=== PATIENT | female | born 1945 | race Caucasian/White ===

== ENCOUNTER 2024-08-16 07:44 | Emergency (ER) | payer MEDICARE, SELFPAY ==
--- OUTSIDE RECORDS SUMMARY | 2024-07-30 13:30 | XMS_ITS | Encounter Summary ---
Author Organization [facility]ly [facility], later [facility] Address [address] [place] [address] Care Team Providers Care Art Gallery Director Name Role Phone Nidia Kim DO Primary Care Provider [phone] Reason for Visit * Reason Comments PT Treatment * Physical Therapy (Routine) - Authorized Specialty Diagnoses / Procedures Referred By Contact Referred To Contact Physical Therapy / Rehabilitation Diagnoses Balance disorder Nidia Kim DO [address] [place] [address] Phone: tel:[phone] fax:[phone] [facility] [address] [place] [address] Phone: tel: fax: Referral ID Status Reason Start Date Expiration Date Visits Requested Visits Authorized [id number] Authorized Evaluation and Treatment 06/09/2024 06/09/2025 20 20 Encounter Details Date Type Department Care Team (Late st Contact Info) Description 07/30/2024 11:30 AM MDT Treatment [facility] [address] [place] [address] Gale Gar, PT Gait disturbance (Primary Dx); Bilateral leg weakness; Decreased activity tolerance; Bilateral hip pain; Balance disorder Social History Tobacco Use Types Packs/Day Years Used Date Smoking Tobacco: Former Cigarettes 2 20 0 02/24/1965 - 02/24/1985 Smokeless Tobacco: Never Alcohol Use Standard Drinks/Week Comments Yes 2 (1 standard drink = 0.6 oz pur e alcohol) 1 monthly AUDIT-C Answer Date Recorded Q1: How often do you have a drink containing alc ohol? Monthly or less 05/16/2020 Q2: How many drinks containi ng alcohol do you have on a typical day when you are drinking? 1 or 2 05/16/2020 Q3: How often do you have si x or more drinks on one occasion? Never 05/16/2020 PHQ-2 Answer Date Recorded PHQ-2 Total Score 1 06/23/2024 Comments No Sex and Gender Information Value Date Recorded Sex Assigned at Not on file Legal Sex Female 3:08 PM MDT Gender Identity Not on file Sexual Orientation Not on file documented as of this encounter Progress Notes * Марина Chavezsmith - 07/30/2024 11:30 AM MDT Images from the original note were not included. [facility] [place] [address] Physical Therapy Daily Note Patient Name: Lizy Faith : 1945 Today's Date: 07/30/2024 General PT Treatment Diagnosis: Impaired gait, balance, bilateral hip weakness PT Referral Diagnosis: Balance disorder Visit Number: 7 Certification From:: 06/24/24 Certification To:: 09/22/24 Time Calculation Start Time : 1130 Stop Time : 1212 Time Calculation (min): 42 min Visit Number: 7 Subjective: Denies pain in the hip, says lumbar pain is 1/10. Reports that she has not done very much standing/walking the last couple days due to the rain. Objective: All exercise, kendal and thera dynamic activites were spent 1:1 with PT while providing tactile and verbal cues for correct body positioning and safety. Treatment Interventions Treatment 1: Nu step L3 7' for muscle priming and stamina Treatment 2: Supine bridges with rTB above knees 2x10 Treatment 3: Clamshells with yTB 2x10 each side Treatment 4: Side lying hip circles 3 fwd 3 bcwd x5 each side with PT assist on reps as needed Treatment 5: LTRs 1x10 Treatment 6: STS on low mat with 5# weight 1x10 Treatment 7: Forward mini lunges 1x10 - caused L knee pain Treatment 8: Lateral lunges 1x12 Treatment 9: Toe taps onto 8 step 2x30 Assessment: Assessment Response to Treatment: Luis Armando is showing improvement in her LE strength as seen by her increased tolerance to activity and demonstration of reciprocal stair climbing today with bilateral handrails. However, she still reaches muscle fatigue very quickly and requires extensive breaks in between exercises. Plan: Treatment Plan Frequency and Duration: 2 x week 10 weeks Ongoing Treatment and Rationale: Continue progressing exercises that challenge LE strength, endurance, and TA activation. Continue to work on stairs and encouraging reciprocal stepping with the use of one handrail rather than two. $ Therapeutic Activity: 8 $ Therapeutic Exercise: 34 Марина Rowell, SPT 07/30/2024 Cosigned by Gale Gar, PT at 07/30/2024 4:45 PM MDT documented in this encounter Plan of Treatment Upcoming Encounters Date Type Department Care Team (Late st Contact Info) Description 09/24/2024 12:45 PM MDT Office Visit [place] [facility] [address] [facility] [address] [place] [id number] Jos Gagnon MD [facility] [address] [place], [place] [address] 09/27/2024 2:00 PM MDT Office [facility] [address] [place] [address] Nidia Kim DO [address] [place] [address] 10/12/2024 3:00 PM MDT Office Visit [facility] [place] [address] [place] [address] Rosaline Whalen, OSCAR [address] [facility] [address] [place] [address] 04/08/2025 9:00 AM [facility] Appointment [facility] [address] [place] [address] Rosaline Whalen NP [address] [facility] [address] [place] [address] 04/14/2025 11:00 AM [facility] Office Visit [facility] [place] [address] [facility] [address] [place] [address] Rosaline Whalen NP [address] [facility] [address] [place] [address] 04/13/2026 9:30 AM [facility] Education [facility] [address] [facility] [address] [place] [address] documented as of this encounter Visit Diagnoses Diagnosis Gait disturbance- Primary Abnormality of gait Bilateral leg weakness Muscle weakness (generalized) Decreased activity tolerance Bilateral hip pain Pain in joint, pelvic region and thigh Balance disorder documented in this encounter Care Teams Art Gallery Director Relationship Specialty Start Date End Date Nidia Kim DO [address] [place] [address] PCP - General Sports Medicine 09/21/23 documented as of this encounter
--- OUTSIDE RECORDS SUMMARY | 2024-08-03 13:30 | XMS_ITS | Encounter Summary ---
Author Organization [facility] Address [address] [place] [address] Care Team Providers Care Environmental Planner Name Role Phone Nidia Kim DO Primary Care Provider [phone] Reason for Visit * Physical Therapy (Routine) - Authorized Specialty Diagnoses / Procedures Referred By Contact Referred To Contact Physical Therapy / Rehabilitation Diagnoses Balance disorder Nidia Kim DO [address] [place] [address] Phone: tel:[phone] fax:[phone] [facility] [address] [place] [address] Phone: tel: fax: Referral ID Status Reason Start Date Expiration Date Visits Requested Visits Authorized [id number] Authorized Evaluation and Treatment 06/09/2024 06/09/2025 20 20 Encounter Details Date Type Department Care Team (Late st Contact Info) Description 08/03/2024 11:30 AM MDT Treatment [facility] [address] [place] [address] Gale Gar PT Gait disturbance (Primary Dx); Bilateral leg [...] as of this encounter Progress Notes * Gale Gar, PT - 08/03/2024 11:30 AM MDT PT Daily Note Patient Name: Lizy Faith : 1945 Today's Date: 08/03/2024 Assessment: Assessment Response to Treatment: Luis Armando improved her FGA score and partially met her hip abduction goal, but is still quite weak in her hip muscles and would benefit from continued strengthening and balance training. She will be out of town starting next week, so will place her chart on hold until she returns. Making slow progress. Visit number:8 Goals: PT Short Term Goals PT Short Term Goal 1: STG to be met in 8 visits: Luis Armando will improve her hip abductor strength so she can perform at least 8 reps side lying hip abduction for improved stability when walking (Goal met for improved stability in walking) PT Short Term Goal 2: Luis Armando will improve her balance so she scores at least a 23/30 on the FGA, out of the high risk for falls range for improved safety when walking (Goal met for better balance in walking) PT Short Term Goal 3: Luis Armando will be compliant with a home exercise program to help manage her weakness and imbalance at home PT Short Term Goal 4: Luis Armando will report she is consistently using her stationary bicycle at home to help increase her activity tolerance PT Skilled Nursing Goals PT Skilled Nursing Goal 1: LTG to be met in 10 weeks: Luis Armando will demonstrate improved strength in her hips so that she does not have a Trendelenburg limp when walking PT Skilled Nursing Goal 2: Luis Armando will demonstrate safe independent gait on outdoor surfaces including sidewalks and curbs so she can return to walking in her neighborhood, one of her goals. Plan: Treatment Plan Frequency and Duration: 2 x week 10 weeks Ongoing Treatment and Rationale: Continue progressing exercises that challenge LE strength, endurance, and TA activation. Continue to work on stairs and encouraging reciprocal stepping with the use of one handrail rather than two. $ Therapeutic Activity: 15 $ Therapeutic Exercise: 31 General PT Treatment Diagnosis: Impaired gait, balance, bilateral hip weakness PT Referral Diagnosis: Balance disorder Visit Number: 8 Certification From:: 06/24/24 Certification To:: 09/22/24 Time Calculation Start Time : 1128 Stop Time : 1214 Time Calculation (min): 46 min Subjective: Feeling OK. Has done stretches but has not walked consistently other than shopping. Still having some pain in left shoulder and thoracic area of her back. 0/10 shoulder pain today. Objective: Liyz was reassessed to measure her progress toward her goals. She was instructed in and practicedwith 1:1 verbal and tactile cues for correct technique strengthening exercises specifically designed for her to challenge her neuromuscular system to improve her function in daily activities. We discussed more consistent exercise at home: I suggested she begin using her stationary bicycle 5 minutesevery morning. We also discussed walking in a pool when she is in [place] next week as she will be gone for a month. She verbalized and demonstrated understanding of instruction. Modifications and manual assist were provided as needed during the session. Treatment Interventions Treatment 1: Nu step L3 7' for muscle priming and stamina Treatment 2: To mat for strengthening: side lying hip abuction x 8 each leg. Can only reach partialrange on right Treatment 3: Hook lying bridge with transversus activation x 12 Treatment 4: Hook lying march with transversus activation. Treatment 5: Ther act for reassessment: FGA: , improved from Treatment 6: 5 x sit<>stand: 11.6 seconds Treatment 7: For posutural muscle strengthening Treatment 8: For leg/core strength: side lunges x 8 each side. This elicited knee pain, so stopped at 8 rather than 10 Treatment 9: Standing hip extension and abduction with yellow t-band resistance x 10 each Treatment 10: Standing alternating mini lunges x 10 Treatment 11: Side steps in // bars 2 laps. Treatment 12: Heel raises x 10, followed by standing hamstring curls Treatment 13: Stretched calf muscles on // bars ramp. Treatment 14: To mat: mobilized T10 rib which was tender. She stated that area felt better when walking. Functional Gait Assessment Normal Mild Impairment Moderate Impairment Severe Impairment 1. Gait level surface 5.1 secondsx(3) (2) (1) (0) 2. Change in gait speed x(3) (2) (1) (0) 3. Gait with horizontal head turns (3) x(2) (1) (0) 4. Gait with vertical head turns x(3) (2) (1) (0) 5. Gait and pivot turn x(3) (2) (1) (0) 6. Step over obstacle x(3) (2) (1) (0) 7. Gait with narrow base of support (3) (2) (1) x(0) 8. Gait with eyes closed (3) (2) 10.3 secondsx(1) (0) 9. Ambulating backwards x(3) (2) (1) (0) 10. Steps (3) x(2) (1) (0) Total Score (<22/30 indicates fall risk) Admission Reassesment Discharge documented in this encounter Plan of Treatment Upcoming Encounters Date Type Department Care Team (Late st Contact Info) Description 09/24/2024 12:45 PM MDT Office Visit [place] [facility] [place] [facility] [place] [address] [facility] [address] [place] [address] Jos Gagnon MD [address] [facility] [address] [place], [place] [address] 09/27/2024 2:00 PM MDT Office Visit [facility] [address] [place] [address] Nidia Kim DO [address] [place] [address] 10/12/2024 3:00 PM MDT [facility] [address] [facility] [address] [place] [address] Rosaline Whalen NP [address] [facility] [address] [place] [address] 04/08/2025 9:00 AM [facility] Appointment [facility] [address] [place] [address] Rosaline Whalen NP [address] [facility] [address] [place] [address] 04/14/2025 11:00 AM [facility] Office Visit [facility] [address] [facility] [address] [place] [address] Rosaline Whalen NP [address] [facility] [address] [place] [address] 04/13/2026 9:30 AM [facility] [address] [facility] [address] [place] [address] documented as of this encounter Visit Diagnoses Diagnosis Gait disturbance- Primary Abnormality of gait Bilateral leg weakness Muscle weakness (generalized) Decreased activity tolerance Bilateral hip pain Pain in joint, pelvic region and thigh Balance disorder documented in this encounter Care Teams Environmental Planner Relationship Specialty Start Date End Date Nidia Kim DO [address] [place] [address] PCP - General Sports Medicine 09/21/23 documented as of this encounter
--- OUTSIDE RECORDS SUMMARY | 2024-08-06 13:30 | XMS_ITS | Encounter Summary ---
Author Organization [facility] Address [address] [place] [address] Care Team Providers Care Information Developer Name Role Phone Nidia Kim DO Primary Care Provider [phone] Reason for Visit * Reason Comments PT Treatment * Physical Therapy (Routine) - Authorized Specialty Diagnoses / Procedures Referred By Contact Referred To Contact Physical Therapy / Rehabilitation Diagnoses Balance disorder Nidia Kim DO [address] [place] [address] Phone: tel:[phone] fax:[phone] [facility] [address] [place] [address] Phone: tel: fax: Referral ID Status Reason Start Date Expiration Date Visits Requested Visits Authorized [id number] Authorized Evaluation and Treatment 06/09/2024 06/09/2025 20 20 Encounter Details Date Type Department Care Team (Late st Contact Info) Description 08/06/2024 11:30 AM MDT Treatment [facility] [address] [place] [address] Gale Gar, PT Bilateral leg weakness (Primary Dx); Decreased activity tolerance; Bilateral hip pain; Gait disturbance; Balance disorder Social History Tobacco Use Types [...] encounter Progress Notes * Марина Chavezsmith - 08/06/2024 11:30 AM MDT Images from the original note were not included. [facility] [place] [address] Physical Therapy Daily Note Patient Name: Lizy Faith : 1945 Today's Date: 08/06/2024 General PT Treatment Diagnosis: Impaired gait, balance, bilateral hip weakness PT Referral Diagnosis: Balance disorder Visit Number: 9 Certification From:: 06/24/24 Certification To:: 09/22/24 Time Calculation Start Time : 1130 Stop Time : 1211 Time Calculation (min): 41 min Visit Number: 9 Subjective: Reports that she has felt achy the past few days, and her balance has been a little off but feelinga little better today. She thinks this may be due to starting a new medication. Due to this she hasnot walked much the past couple days. Pain is at a 1/10 today in the low back. Objective: All exercise, kendal and thera dynamic activites were spent 1:1 with PT while providing tactile and verbal cues for correct body positioning and safety. Treatment Interventions Treatment 1: Nu step L3 8' for muscle priming and stamina Treatment 2: Checked BP- 133/57 mmHg Treatment 3: Ther act to review HEP as pt will be going on a trip for 1 month Treatment 4: supine bridges 2x10 Treatment 5: sidelying clamshells with yTB 2x10 Treatment 6: supine marching with TA activation 2x10 Treatment 7: standing hip abduction 2x10 ea Treatment 8: standing hip extension 2x10 ea Treatment 9: Man ther to address hip flexor tightness and pain- STM to psoas with strain counter-strain Treatment 10: Ther ex for LE strengthening- Alternating mini lunges in // bars 2x10 Treatment 11: heel raises 2x10 Treatment 12: STS 2x10 at low mat Assessment: Assessment Response to Treatment: Luis Armando responded well to treatment today and her strength is slowly improving in her LE. Some muscle imbalance was observed as she tends to favor the use of quadriceps over her posterior chain muscles for LE strengthening, especially for sit to stands. She would benefit from continuing to strengthen core and posterior chain. We reviewed with Luis Armando her HEP as she will be going out of town for a month, and emphasized the importance of being consistent in order to maintain strength and balance. Plan: Treatment Plan Frequency and Duration: 2 x week 10 weeks Ongoing Treatment and Rationale: Continue progressing exercises that challenge LE strength, endurance, and TA activation. Continue to work on stairs and encouraging reciprocal stepping with the use of one handrail rather than two. Progress exercises that will challenge her posterior chain. $ Therapeutic Activity: 21 $ Therapeutic Exercise: 12 $ Manual Therapy: 8 Марина Rowell, SPT 08/06/2024 Cosigned by Gale Gar, PT at 08/06/2024 12:43 PM MDT documented in this encounter Plan of Treatment Upcoming Encounters Date Type Department Care Team (Late st Contact Info) Description 09/24/2024 12:45 PM MDT Office Visit [place] [facility] [place] [facility] [place] [address] [facility] [address] [place] [address] Jos Gagnon MD [address] [facility] [address] [place], [place] [address] 09/27/2024 2:00 PM MDT Office Visit [facility] [address] [place] [address] Nidia Kim DO [address] [place] [address] 10/12/2024 3:00 PM MDT Office Visit [facility] [address] [facility] [address] [place] [address] Rosaline Whalen NP [address] [facility] [address] [place] [address] 04/08/2025 9:00 AM [facility] Appointment [facility] [address] [place] [address] Rosaline Whalen NP [address] [facility] [address] [place] [address] 04/14/2025 11:00 AM MST Office Visit [facility] [address] [facility] [address] [place] [address] Rosaline Whalen NP [address] [facility] [address] [place] [address] 04/13/2026 9:30 AM [facility] Education [facility] [address] [facility] [address] [place] [address] documented as of this encounter Visit Diagnoses Diagnosis Bilateral leg weakness- Primary Muscle weakness (generalized) Decreased activity tolerance Bilateral hip pain Pain in joint, pelvic region and thigh Gait disturbance Abnormality of gait Balance disorder documented in this encounter Care Teams Information Developer Relationship Specialty Start Date End Date Nidia Kim DO [address] [place] [address] PCP - General Sports Medicine 09/21/23 documented as of this encounter
--- OUTSIDE RECORDS SUMMARY | 2024-08-16 07:54 | XMS_ITS | Continuity of Care Document ---
Author Organization [facility]. If a dditional information is needed, contact Health Information Management at [phone] Address [address] [place] [address] Phone Care Team Providers Care Quenching Car Operator Name Role Phone Unavailable Unavailable Unavailable Unavailable Unavailable Unavailable Unavailable Unavailable Unavailable Unavailable Unavailable Unavailable Unavailable Unavailable Unavailable Problems Hyperparathyroidism Comments:Hyperparathyroidism Impairment of balance Comments:Balance disorder History of malignant neoplas m of kidney Comments:H/O renal cell canc er Obesity Comments:Obesity without ser ious comorbidity, unspecified classification, unspecified obesity type Gastroesophageal reflux dise ase with apnea Comments:Gastro-esophageal r eflux disease without esophagitis Osteoporosis Comments:Osteoporosis, unspe cified osteoporosis type, unspecified pathological fracture presence Chronic kidney disease stage 4 Comments:Chronic kidney dise ase, stage IV (severe) Apnea Comments:Apnea, not elsewher e classified Medications Lisinopril 20 MG Oral Tablet ;20 MG Orally Once a day, 1 tablet Quantity:30 Kianinejad Maryem Comments:20 MG Orally Once a day, 1 tablet Estradiol 0.5 MG Oral Tablet ;0.5 MG Orally , 1 tablet Quantity:24 Kianinejad Maryem Comments:0.5 MG Orally , 1 tablet Meloxicam;15 MG Orally Once a day, 1 tablet Quantity:30 Kianinejad Maryem Comments:15 MG Orally Once a day, 1 tablet MedroxyPROGESTERone Acetate; 2.5 MG Orally Once a day, 2 tablets with food Quantity:10 Kianinejad Maryem Comments:2.5 MG Orally Once a day, 2 tablets with food Vitamin D3 Complete;- Orally , as directed Opal [place] Comments:- Orally , as directed Fish Oil [place]-3;1000 MG Ora lly Once a day, 1 capsule Quantity:30 Kianinejad Maryem Comments:1000 MG Orally Once a day, 1 capsule Omeprazole;40 MG Orally Once a day, 1 capsule Quantity:30 Opal [place] Comments:40 MG Orally Once a day, 1 capsule Tylenol Arthritis Pain;1300 Orally PRN, Opal Moore Comments:1300 Orally PRN, Encounters pre-admission 26-Jun-2018 12:30 Norma Estrada MD (Attending) [facility]
[2024-08-16 07:55] VITALS: BP 136/64; PULSE 67; TEMP 36.5; O2SAT 96; BMI 39.9
--- OUTSIDE RECORDS SUMMARY | 2024-08-16 07:55 | XMS_ITS | Data Portability ---
Author Organization [place] [facility] Address [address] [place] [address] Care Team Providers Care Creative/Art Director Name Role Phone DOUGIE FRIAS Primary Care Provider Assessment Encounter Date Assessment Date Assessment LastModified by Organization Details LastModified Time 02/22/2020 02/22/2020 Overview/History : 74-year-old female new to [facility] with history of renal cell carcinoma status post nephrectomy presents with 2 day history of dysuria and increased urinary frequency. No flank pain, no nausea vomiting or fever. Exam: Acute distress, no abdominal tenderness, no CVA tenderness. DDx considered, but not limited to: Pyelonephritis, nephrolithiasis, urosepsis, vaginal irritation Work up/Results: Urinalysis demonstrated positive blood leucocyte esterase and nitrites there is also positive protein. Urine culture will be sent. Patient had recent blood chemistry with a GFR reported of 26. Plan/Discussion: Signs stable, afebrile, no acute distress. History exam and urine dipstick findings most suggestive of acute uncomplicated urinary tract infection. Will treat empirically with cephalexin as ordered. Will renally dose 4 GFR from 15-30 at 500 mg every 12 hours for 5 days. Home care instructions were given. Emergency room and return precautions were discussed. Follow up with primary care. In order to obtain further information and compare any laboratory results/values, I have accessed patient records on the [employer]. This information was pertinent in my medical decision making today. Not available 02/22/2020 22:06:03 Plan of Treatment Reminders Order Date Submit Date Provider Last Modified By Organization Details Last Modified Time Details Appointments None recorded. Lab culture, urine 2019 020 ARBEN [facility], [address], [address], [place], [address], 1 12:47:05 urinalysis , dipstick 2019 [facility], [address], [place], [address], 0 21:39:27 Referral None recorded. Procedures None recorded. Surgeries None recorded. Imaging None recorded. Medication Orders cephalexin 250 mg capsule 2019 Not available 0 22:07:13 cephalexin 500 mg capsule 2019 [id number], [address], [place], [place], [id number], 0 21:45:55 Patient TargetsNo targets recorded. Patient Instructions Encounter Date Encounter Id Patient Instructions Last Modified By Organization Details Last Modified Time 02/22/2020 [id number] Urinary Tract Infection (UTI) in Women: Care Instructions Not available 02/22/2020 21:39:28 Urinary Tract Infection in Women: Care Instructions Your Care Instructions A urinary tract infection, or UTI, is a general term for an infection anywhere between the kidneys and the urethra (where urine comes out). Most UTIs are bladder infections. They often cause pain or burning when you urinate. UTIs are caused by bacteria and can be cured with antibiotics. Be sure to complete your treatment so that the infection goes away. Follow-up care is a min part of your treatment and safety. Be sure to make and go to all appointments, and call your doctor if you are having problems. It's also a good idea to know your test results and keep a list of the medicines you take. How can you care for yourself at home? Take your antibiotics as directed. Do not stop taking them just because you feel better. You need to take the full course of antibiotics. Drink extra water and other fluids for the next day or two. This may help wash out the bacteria that are causing the infection. (If you have kidney, heart, or liver disease and have to limit fluids, talk with your doctor before you increase your fluid intake.) Avoid drinks that are carbonated or have caffeine. They can irritate the bladder. Urinate often. Try to empty your bladder each time. To relieve pain, take a hot bath or lay a heating pad set on low over your lower belly or genital area. Never go to sleep with a heating pad in place. To prevent UTIs Drink plenty of water each day. This helps you urinate often, which clears bacteria from your system. (If you have kidney, heart, or liver disease and have to limit fluids, talk with your doctor before you increase your fluid intake.) Urinate when you need to. Urinate right after you have sex. Change sanitary pads often. Avoid douches, bubble baths, feminine hygiene sprays, and other feminine hygiene products that have deodorants. After going to the bathroom, wipe from front to back. When should you call for help? Call your doctor now or seek immediate medical care if: Symptoms such as fever, chills, nausea, or vomiting get worse or appear for the first time. You have new pain in your back just below your rib cage. This is called flank pain. There is new blood or pus in your urine. You have any problems with your antibiotic medicine. Watch closely for changes in your health, and be sure to contact your doctor if: You are not getting better after taking an antibiotic for 2 days. Your symptoms go away but then come back. Care instructions adapted under license by [facility]. This care instruction is for use with your licensed healthcare professional. If you have questions about a medical condition or this instruction, always ask your healthcare professional. [employer] disclaims any warranty or liability for your use of this information. Not available 02/22/2020 21:37:54 Reason for Referral None Reported. Results Created Date Observation Date Name Description Value Unit Range Abnormal Flag Note LastModifiedBy Organization Detail LastModifiedTime 02/22/20 20 02/22/2020 urina lysis , dipst ick Appearance cloudy Not Available [facility] [address], [place], [address], 02/22/2020 21:36:45 02/22/20 20 02/22/2020 urina lysis , dipst ick Color yellow Not Available [facility] [address], [place], [address], 02/22/2020 21:36:45 02/22/20 20 02/22/2020 urina lysis , dipst ick Glucose negati ve Not Available [facility] [address], [place], [address], 02/22/2020 21:36:45 02/22/20 20 02/22/2020 urina lysis , dipst ick Bilirubin negati ve Not Available [facility] [address], [place], [address], 02/22/2020 21:36:45 02/22/20 20 02/22/2020 urina lysis , dipst ick Ketones NEG Not Available [facility] [address], [place], [address], 02/22/2020 21:36:45 02/22/20 20 02/22/2020 urina lysis , dipst ick [place] 1.02 Not Available [facility] [address], [place], [address], 02/22/2020 21:36:45 02/22/20 20 02/22/2020 urina lysis , dipst ick Blood ++ Not Available [facility] [address], [place], [address], 02/22/2020 21:36:45 02/22/20 20 02/22/2020 urina lysis , dipst ick pH 5 Not Available [facility] [address], [place], [address], 02/22/2020 21:36:45 02/22/20 20 02/22/2020 urina lysis , dipst ick Protein positi ve Not Available [facility] [address], [place], [address], 02/22/2020 21:36:45 02/22/20 20 02/22/2020 urina lysis , dipst ick Urobilirubin negati ve Not Available [facility] [address], [place], [address], 02/22/2020 21:36:45 02/22/20 20 02/22/2020 urina lysis , dipst ick Nitrites +++ Not Available [facility] [address], [place], [address], 02/22/2020 21:36:45 02/22/20 20 02/22/2020 urina lysis , dipst ick Leukocytes +++ Not Available [facility] [address], [place], [address], 02/22/2020 21:36:45 02/22/20 20 02/26/2020 cultu re, urine urine culture, routine Final report abnormal Not Available [facility] ([facility]) [address], [place], [address], 02/26/2020 18:07:01 02/22/20 20 02/26/2020 cultu re, urine result 1 Escher ichia coli abnormal Great er than 100,0 00 colon y formi ng units per mL Cefaz pritesh <=4 ug/mL Cefaz pritesh with an OMAYRA <=16 predi cts susce ptibi lity to the oral agent s cefac mirza, cefdi jonny, cefpo doxim e, cefpr ozil, cefur oxime , cepha lexin , and lorac arbef when used for thera py of uncom plica russel urina ry tract infec tions due to E. coli, Klebs iella pneum oniae , and Prote us mirab ilis. Not Available [facility] ([facility]) [address], [place], [address], 02/26/2020 18:07:01 02/22/20 20 02/26/2020 cultu re, urine antimicrobia l susceptibili ty Commen t S = Susce ptibl e; I = Inter media te; R = Resis tant P = Posit andi; N = Negat andi MICS are expre ssed in micro grams per mL Antib iotic RSLT# 1 RSLT# 2 RSLT# 3 RSLT# 4 Amoxi cilli n/Cla vulan ic Acid S Ampic illin S Cefep elizabeth S Ceftr iaxon e S Cefur oxime S Cipro floxa anne S Ertap enem S Genta micin S Imipe nem S Levof loxac in S Merop enem S Nitro furan toin S Piper acill in/Ta zobac randhawa S Tetra cycli ne R Tobra mycin S Trime thopr im/Trammell lfa S Not Available [facility] ([facility]) [address], [place], [address], 02/26/2020 18:07:01 Result Notes None recorded. Medical Equipment None Reported. Allergies Allergen ID Allergen Name Allergen Category Reaction Reaction Severity Criticality Documentation Date Start Date Code Code System Note Provider Name and Address Organization Details Recorded Time [id number] acetamino phen / oxycodone medicatio n Not available Not available Not available 02/22/2020 26773 3 RxNorm INDIRA GLEZ, RETIREMENT ASSISTANT [address] [place], [address], [place] [facility] 0 21:25:53 Medications Name Sig Start Date Stop Date Status Note LastModified by Organization Details LastModified Time mm low dose aspirin TAKE 1 TABLET BY MOUTH ONCE DAILY 02/21 completed Not Available Not Available Not Available atorvastati n 10 mg tablet TAKE 1 TABLET BY MOUTH ONCE DAILY active Not Available Not Available No t Available cephalexin 250 mg capsule take 2 capsules by mouth now- administe red at 744pm 2019 active Not Available Not Available Not Avai lable lisinopril 20 mg tablet TAKE 1 TABLET BY MOUTH ONCE DAILY active Not Available Not Available No t Available peg-electro lyte solution 420 gram oral solution START AT 10AM ON THE DAY PRIOR TO SURGERY OR PROCEDURE . DRINK 8 OZ. EVERY 10 MINS UNTIL GONE 02/21 completed Not Available Not Available Not Available tramadol 50 mg tablet TAKE 1 TABLET BY MOUTH EVERY 6 HOURS NEEDED FOR MODERATE PAIN active Not Available Not Available No t Available cephalexin 500 mg capsule TAKE 1 CAPSULE BY MOUTH EVERY 12 HOURS FOR 5 DAYS active Not Available Not Available No t Available mirtazapine 30 mg tablet TAKE 1 TABLET BY MOUTH NIGHTLY 02/21 completed Not Available Not Available Not Available methylpredn isolone 4 mg tablets in a dose pack TAKE BY MOUTH DIRECTED ON INSIDE OF PACKAGE 02/21 completed Not Available Not Available Not Available neomycin 500 mg tablet TAKE 2 TABLETS BY MOUTH AT 1PM 2PM AND 8PM THE DAY PRIOR TO SURGERY. 02/21 completed Not Available Not Available Not Available vitamin B complex active Not Available Not Available Not Available Vitamin D active Not Available Not Sindhu ilable Not Available Eliquis 2.5 mg tablet TAKE 1 TABLET BY MOUTH TWICE DAILY active Not Available Not Available No t Available Vitals Date Recorded Heart rate Respiratory rate Oxygen saturation Oxygen saturation in Arterial blood by Pulse oximetry Body temperature Systolic blood pressure Diastolic blood pressure Provider Name and Address Organization Details Last Updated DateTime 0 85 /min 12 /min 96 % 96 % 98 [degF] 146 mm[Hg] 80 mm[Hg] Not Available [facility] 0 21:31:51 Social History Question Answer Notes LastModified by Organizat ion Details LastModified Time Tobacco Smoking Status Former Smoker INDIRA GLEZ, RETIREMENT ASSISTANT [address] [place], [address], [place] [facility] 02/22/2020 21:27:58 Within The Past 12 Months, Has It Happened That The Food You Bought Just Didn't Last And You Didn't Have Money To Get More. No Information not available 02/22/2020 Within The Past 12 Months, Have You Worried That Your Food Would Run Out Before You Got Money To Buy More. No Information not available 02/22/2020 Fall Risk: Do You Feel Unsteady When Standing Or Walking? Yes Information not available 02/22/2020 Sex: Unknown Functional Status None recorded. Mental Status None recorded. Family History Relationship Description Onset Age of this Age Resolved Age Notes LastModified by Organization Details LastModified Time Father Malignant neoplastic disease Not available 2019 21:27:44 Mother Coronary arterioscler osis Not available 2019 21:27:52 Medical History Condition Response Coronary Artery Disease N COPD N Depression N Cancer N Stroke Y High Cholesterol Y Kidney Disease N Diabetes N Asthma N Pulmonary Embolism N Hypertension Y Gynecological HistoryNo gynecological history recorded. Obstetrics History GPAL:G 0 P 0 0 0 0 Past Encounters Encounter ID Performer Location Encounter Start Date Encounter Closed Date Diagnosis/Indication Diagnosis SNOMED-CT Code Diagnosis ICD10 Code Diagnosis Note [id number] INDIRA GLEZ NP [facility] [address] [place] [address] 02/22/2020 21:18:35 02/22/2020 22:20:19 Urinary tract infectious disease 87842417 N39.0 GFR 26 Acute urin yuliet tract infection 939421829 N39.0 Health Concerns Section Related Observation LastModified by Organization Detai ls LastModified Time None Recorded Concern Status LastModified by Organization Details LastModified Time None Recorded Advance Directives Directive None Recorded Payers Insurance Date Sequence Insurance Name Policy Number Policy Renteria Covered Member ID Renteria Member ID Guarantor Name 02/22/2020 1 *SELF PAY* Lizy Faith [id number] Lizy Faith 02/22/2020 1 [facility] (MEDICARE REPLACEMENT/A DVANTAGE - HMO) [id number] Lizy Faith [id number] Lizy Faith Notes Date Note Type Note Provider Name and Address Organization Details Recorded Time 02/22/2020 text/html 74 yo F- new to - with hx renal cancer (s/p nephrectomy), CKD, recent bowel perforation requiring colostomy and takedown- presents with 2 day hx of dysuria and increased frequency- urine is cloudy- No flank pain.. no N/V or abdominal pain.. no fever (notes 99 temp). INDIRA GLEZ NP [address] [place], [address], [place] [facility] 02/22/2020 22:06:17 OBGyn Episode No OBEpisode recorded.
--- OUTSIDE RECORDS SUMMARY | 2024-08-16 07:55 | XMS_ITS | Encounter Summary ---
Author Organization [facility] Address [address] [place] [address] Care Team Providers Care Supervisor Central Supply Name Role Phone Nidia Kim DO Primary Care Provider [phone] Reason for Referral * Echocardiogram (Routine) - Closed Specialty Diagnoses / Procedures Referred By Contac t Referred To Contact Cardiology Diagnoses Cerebellar infarction (CMS/HCC) Homonymous bilateral field defects in visual field, right Disorder of kidney and ureter Procedures Echocardiogram 2D Complete Zo Godoy MD [address] [place] [address] Phone: tel: fax: [facility] [address] [place] [address] Phone: tel: Referral ID Status Reason Start Date Expiration Date Visits Re quested Visits Authorized [id number] Closed 03/15/2020 03/15/2021 1 1 [facility] Encounter Details Date Type Department Care Team (Latest Contact Info) Description 03/15/2020 Transcribe Orders [facility] [address] [place] [address] Zo Godoy MD [address] [place] [address] Cerebellar infarction (CMS/HCC) (Primary Dx); Homonymous bilateral field defects in visual field, right; Disorder of kidney and ureter Social History Tobacco Use Types Packs/Day Years Used Date Smoking Tobacco: Former Cigarettes 2 20 0 02/24/1965 - 1985 Smokeless Tobacco: Never Alcohol Use Standard Drinks/Week Comments Yes 2 (1 standard drink = 0.6 oz pur e alcohol) 2 per month AUDIT-C Answer Date Recorded Frequency of Alcohol Consumption Monthly or less 01/22/2018 Average Number of Drinks 1 or 2 018 Frequency of Binge Drinking Never 12/26 PHQ-2 Answer Date Recorded PHQ-2 Total Score 0 12/17/2019 Comments No Sex and Gender Information Value Date Recorded Sex Assigned at Not on file Legal Sex Female 3:08 PM MDT Gender Identity Not on file Sexual Orientation Not on file COVID-19 Exposure Response Date Recorded In the last month, have you been in contact with someone who was confirmed or suspected to have Coronavirus / COVID-19? No / Unsure 02/29/2020 10:00 AM MST documented as of this encounter Plan of Treatment Upcoming Encounters Date Type Department Care Team (Late st Contact Info) Description 09/24/2024 12:45 PM MDT Office Visit [facility] [address] [facility] [address] [place] [phone] Jos Gagnon MD [address] [place] [address] [address] [place], [place] [address] 09/27/2024 2:00 PM MDT Office Visit [facility] Primary Care [facility] [address] [place] [address] Nidia Kim DO [address] [place] [address] 10/12/2024 3:00 PM MDT Office Visit [facility] [address] [place] [address] Koby Rosaline Ivania, [employer] [address] [place] [address] 04/08/2025 9:00 AM [facility] Appointment [facility] [address] [place] [address] KobyJesseah Ivania, OSCAR [address] [place] [address] 04/14/2025 11:00 AM [facility] Office Visit [facility] [address] [place] [address] KobyJesse mukherjeeah Ivania, OSCAR [address] [place] [address] 04/13/2026 9:30 AM [facility] [address] [place] [address] documented as of this encounter Results * ECHO 2D COMPLETE WO CONTRAST W DOPPLER & OR COLOR (04/10/2020 3:14 PM [facility]) EF 52.97 % CPACS Anatomical Region Laterality Modality N/A Echocardiography 04/10/2020 3:48 PM [facility] Impressions 04/10/2020 3:48 PM [facility] Spectral Doppler and Color Flow Velocity Mapping were used to interrogate the valves and cardiac structures. Normal left and right ventricular systolic function, LV ejection fraction 55-60 %. No evidence of pericardial effusion. Mild aortic insufficiency, no stenosis. No other significant valvular abnormalities. Unable to estimate RVSP due to incomplete TR jet. Normal CVP. Narrative 04/10/2020 3:48 PM [facility] Transthoracic Echocardiography Report (TTE) Demographics Patient Name TERESA RENEE Gender Female BOAZ [place] ID [id number] Room Number Visit Number [id number] Date of Study 04/10/2020 Local MRN Referring Judy Gonzalessey Physician Ordering Provider Jayne Pathak Number Annmarie Date of 1945 Drug Abuse Social Worker Linda Aviles RDCS Age 75 year(s) Interpreting Alyssa Curran Physician Procedure Type of Study TTE procedure:Spectral Doppler Complete, Color Flow Velocity Mapping, Echo TTE Complete. Procedure Date Date: 04/10/2020 Start: 02:48 PM Study Location: Outpatient Technical Quality: Adequate visualization Indications:Stroke. Patient Status: Outpatient Height: 63 inches Weight: 205 pounds BSA: 1.95 m^2 BMI: 36.31 kg/m^2 BP: 145/81 mmHg Conclusions Summary Spectral Doppler and Color Flow Velocity Mapping were used to interrogate the valves and cardiac structures. Normal left and right ventricular systolic function, LV ejection fraction 55-60 %. No evidence of pericardial effusion. Mild aortic insufficiency, no stenosis. No other significant valvular abnormalities. Unable to estimate RVSP due to incomplete TR jet. Normal CVP. Signature Structures Left Atrium Findings Normal left atrial size. Color Doppler Findings: Interatrial septum appears intact by color flow doppler. LA Dimension: 4.7 cm LA Area: 21.2 cm^2 LA/Aorta: 1.38 LA Volume/Index: 61.4 ml /31ml/m^2 Left Ventricle Findings Normal left ventricular size. Normal left ventricular wall thickness. Normal left ventricular systolic function with ejection fraction estimated to be 55-60%. No regional wall motion abnormalities. Impaired LV relaxation consistent with grade 1 diastolic dysfunction. Diastolic Dimension: 4.2 cm Systolic Dimension: 2.5 cm Septum Diastolic: 0.8 cm PW Diastolic: 0.8 cm Area Systolic: 20.3 cm^2 Area Diastolic: 31.9 cm^2 FS: 40.5 % LV EDV/LV EDV Index: 99.3 ml/51 LV ESV/LV ESV Index: 46.7 ml/24 ml/m^2 ml/m^2 EF Calculated: 53% LV Length: 8.39 cm LVOT Diameter: 2.1 cm Right Atrium Findings The right atrium is normal in size. Right Ventricle Findings Normal right ventricular size and systolic function. TAPSE measures 1.9 cm, consistent with normal right ventricular systolic function. Miscellaneous Miscellaneous Findings Normal aortic root size. Normal ascending aorta size. Normal IVC with >50% respiratory collapse. Aorta Aortic Root: 3.4 cm Ascending Aorta: 3.6 cm LVOT Diameter: 2.1 cm Shunts Qs:89.36 Pericardium Findings No evidence of pericardial effusion. Pleura Findings No evidence of pleural effusion. Valves Mitral Valve Findings Mitral annulus calcification. Mitral annulus calcification, with extension of calcification onto the posterior mitral valve leaflet. Color and Spectral Doppler Findings: No mitral stenosis. Trace mitral insufficiency. Peak E-Wave: 44.1 cm/s Peak A-Wave: 106 cm/s P1/2t: 53 msec E/A Ratio: 0.42 Peak Gradient: 0.78 mmHg Area (PHT): 4.15 cm^2 Deceleration Time: 180 msec Tissue Doppler E' Septal Velocity: 4.03 cm/s E/E' Septal: 10.93792 E' Lateral Velocity: 5.87 cm/s E/E' Lateral: 7.452129 LVOT Peak Velocity: 143 cm/s Mean Velocity: 91.2 cm/s Peak Gradient: 8 mmHg Mean Gradient: 4 mmHg LVOT Diameter: 2.1 cm LVOT VTI: 25.8 cm Aortic Valve Findings Normal aortic valve structure and function. Aortic valve is trileaflet. Color and Spectral Doppler Findings: Mild aortic insufficiency, no stenosis. Peak Velocity: 169 cm/s Mean Velocity: 95.9 cm/s Peak Gradient: 11.42 mmHg Mean Gradient: 5 mmHg Area (continuity): 2.88 cm^2 AV VTI: 31 cm DI: 0.83 AVAI VTI: 1.48 cm^2/m^2 Tricuspid Valve Findings Normal tricuspid valve structure and function. Unable to estimate RVSP due to incomplete TR jet. Color and spectral Doppler Findings: Trace tricuspid regurgitation. No tricuspid stenosis. Pulmonic Valve Findings Grossly normal pulmonic valve structure and function. Color and spectral Doppler Findings: No pulmonic insufficiency or stenosis. Peak Velocity: 81.2 cm/s Peak Gradient: 2.64 mmHg Acceleration Time: 85 msec Procedure Note Magdy Shah MD - 04/10/2020 Transthoracic Echocardiography Report (TTE) Demographics Patient Name TERESA RENEE Gender Female BOAZ [place] ID [id number] Room Number Visit Number [id number] Date of Study 04/10/2020 Local MRN Referring Juyd Gonzalessey Physician Ordering Provider Jayne Lesliene Number Annmarie Date of 1945 Drug Abuse Social Worker Linda Fonseca Age 75 year(s) Interpreting Alyssa Curran Physician Procedure Type of Study TTE procedure:Spectral Doppler Complete, Color Flow Velocity Mapping,Echo TTE Complete. Procedure Date Date: 04/10/2020 Start: 02:48 PM Study Location: Outpatient Technical Quality: Adequate visualization Indications:Stroke. Patient Status: Outpatient Height: 63 inches Weight: 205 pounds BSA: 1.95 m^2 BMI: 36.31 kg/m^2 BP: 145/81 mmHg Conclusions Summary Spectral Doppler and Color Flow Velocity Mapping were used tointerrogate the valves and cardiac structures. Normal left and right ventricular systolic function, LV ejectionfraction 55-60 %. No evidence of pericardial effusion. Mild aortic insufficiency, no stenosis. No other significant valvular abnormalities. Unable to estimate RVSP due to incomplete TR jet. Normal CVP. Signature Structures Left Atrium Findings Normal left atrial size. Color Doppler Findings: Interatrial septum appears intact by color flow doppler. LA Dimension: 4.7 cm LA Area: 21.2 cm^2 LA/Aorta: 1.38 LA Volume/Index: 61.4 ml /31ml/m^2 Left Ventricle Findings Normal left ventricular size. Normal left ventricular wall thickness. Normal left ventricular systolic function with ejection fraction estimated to be 55-60%. No regional wall motion abnormalities. Impaired LV relaxation consistent with grade 1 diastolic dysfunction. Diastolic Dimension: 4.2 cm Systolic Dimension: 2.5 cm Septum Diastolic: 0.8 cm PW Diastolic: 0.8 cm Area Systolic: 20.3 cm^2 Area Diastolic: 31.9 cm^2 FS: 40.5 % LV EDV/LV EDV Index: 99.3 ml/51 LV ESV/LV ESV Index: 46.7 ml/24 ml/m^2 ml/m^2 EF Calculated: 53% LV Length: 8.39 cm LVOT Diameter: 2.1 cm Right Atrium Findings The right atrium is normal in size. Right Ventricle Findings Normal right ventricular size and systolic function. TAPSE measures 1.9 cm, consistent with normal right ventricularsystolic function. Miscellaneous Miscellaneous Findings Normal aortic root size. Normal ascending aorta size. Normal IVC with >50% respiratory collapse. Aorta Aortic Root: 3.4 cm Ascending Aorta: 3.6 cm LVOT Diameter: 2.1 cm Shunts Qs:89.36 Pericardium Findings No evidence of pericardial effusion. Pleura Findings No evidence of pleural effusion. Valves Mitral Valve Findings Mitral annulus calcification. Mitral annulus calcification, with extension of calcification onto the posterior mitral valve leaflet. Color and Spectral Doppler Findings: No mitral stenosis. Trace mitral insufficiency. Peak E-Wave: 44.1 cm/s Peak A-Wave: 106 cm/s P1/2t: 53 msec E/A Ratio: 0.42 Peak Gradient: 0.78 mmHg Area (PHT): 4.15 cm^2 Deceleration Time: 180 msec Tissue Doppler E' Septal Velocity: 4.03 cm/s E/E' Septal: 10.96554 E' Lateral Velocity: 5.87 cm/s E/E' Lateral: 7.577583 LVOT Peak Velocity: 143 cm/s Mean Velocity: 91.2 cm/s Peak Gradient: 8 mmHg Mean Gradient: 4 mmHg LVOT Diameter: 2.1 cm LVOT VTI: 25.8 cm Aortic Valve Findings Normal aortic valve structure and function. Aortic valve is trileaflet. Color and Spectral Doppler Findings: Mild aortic insufficiency, no stenosis. Peak Velocity: 169 cm/s Mean Velocity: 95.9 cm/s Peak Gradient: 11.42 mmHg Mean Gradient: 5 mmHg Area (continuity): 2.88 cm^2 AV VTI: 31 cm DI: 0.83 AVAI VTI: 1.48 cm^2/m^2 Tricuspid Valve Findings Normal tricuspid valve structure and function. Unable to estimate RVSP due to incomplete TR jet. Color and spectral Doppler Findings: Trace tricuspid regurgitation. No tricuspid stenosis. Pulmonic Valve Findings Grossly normal pulmonic valve structure and function. Color and spectral Doppler Findings: No pulmonic insufficiency or stenosis. Peak Velocity: 81.2 cm/s Peak Gradient: 2.64 mmHg Acceleration Time: 85 msec IMPRESSION: Spectral Doppler and Color Flow Velocity Mapping were used to interrogatethe valves and cardiac structures. Normal left and right ventricular systolic function, LV ejection [id number] %. No evidence of pericardial effusion. Mild aortic insufficiency, no stenosis. No other significant valvular abnormalities. Unable to estimate RVSP due to incomplete TR jet. Normal CVP. Zo Godoy MD CV ECHO ORDERABLES Final Result documented in this encounter Visit Diagnoses Diagnosis Cerebellar infarction (CMS/HCC)- Primary Unspecified cerebral artery occlusion with cerebral infarction Homonymous bilateral field defects in visual field, right Disorder of kidney and ureter Unspecified disorder of kidney and ureter Cerebellar infarction (CMS/HCC) Unspecified cerebral artery occlusion with cerebral infarction Homonymous bilateral field defects in visual field, right Disorder of kidney and ureter Unspecified disorder of kidney and ureter documented in this encounter Care Teams Supervisor Central Supply Relationship Specialty Start Date End Date Nidia Kim DO [address] [place] [phone] PCP - General Sports Medicine 09/21/23 documented as of this encounter
--- OUTSIDE RECORDS SUMMARY | 2024-08-16 07:55 | XMS_ITS | Encounter Summary ---
Author Organization [facility] Address [address] [place] [address] Care Team Providers Care Ornamenter Name Role Phone Nidia Kim DO Primary Care Provider [phone] Reason for Visit * Reason Comments Med Refill Encounter Details Date Type Department Care Team (Late st Contact Info) Description 02/02/2020 Refill 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 No / Unsure 02/03/2020 11:55 AM MST documented as of this encounter Miscellaneous Notes * Telephone Encounter - Rey Torres MA - 02/04/2020 8:44 AM MST Please contact patient for an appointment for medication follow up. This is needed with any changes. Patient also seen in ED yesterday for fall with head laceration. Please schedule as ED follow up/medication review * Telephone Encounter - Joycelyn Pak - 02/03/2020 10:49 AM MST Patient states she stopped taking this medication, but since her blood pressure started to increaseshe started taking the medication again. She says her blood pressure has decreased w/ the medication. Please call pt back. * Telephone Encounter - Nidia Kim DO - 02/03/2020 9:31 AM MST Med discontinued * Telephone Encounter - Rey Torres MA - 02/02/2020 9:43 AM MST Patient had a virtual visit 01/12/2020, HTN and follow up not seen. No future appt. Please advise. documented in this encounter Plan of Treatment Upcoming Encounters Date Type Department Care Team (Late st Contact Info) Description 09/24/2024 12:45 PM MDT Office Visit [place] [facility] [address] [place] [address] Jos Gagnon MD [facility] [address] [place] [address] 09/27/2024 2:00 PM MDT Office Visit [facility] [address] [place] [address] Nidia Kim DO [address] [place] [phone] 10/12/2024 3:00 PM MDT Office Visit [facility] [address] [facility] [address] [place] [address] Rosaline Whalen NP [address] [facility] [address] [place] [address] 04/08/2025 9:00 AM [facility] Appoint[facility] [address] [place], [place] [phone] [facility]aline Whalen [facility] [address] [facility] [address] [place] [address] 04/14/2025 11:00 AM MST Office Visit [facility] [place] [address] [facility] [address] [place] [address] Rosaline Whalen NP [address] [facility] [address] [place] [address] 04/13/2026 9:30 AM [facility] Education [facility] [place] [address] [facility] [address] [place] [address] documented as of this encounter Visit Diagnoses Diagnosis Benign hypertension with CKD (chronic kidney disease) stage III ([facility]/HCC) Benign hypertensive kidney disease with chronic kidney disease stage I through stage IV, or unspecified documented in this encounter Care Teams Ornamenter Relationship Specialty Start Date End Date Nidia Kim DO [address] [place] [address] PCP - General Sports Medicine 09/21/23 documented as of this encounter
--- OUTSIDE RECORDS SUMMARY | 2024-08-16 07:56 | XMS_ITS ---
Author Organization [facility] Care Team Providers Care Fire Investigation Manager Name Role Phone Brigitte Urban Unavailable Unavailable Jocelyn Zimmerman Unavailable Unavailable Tomás Mayberry Unavailable Unavailable MILTON MARR Unavailable Unavailable Tamiko Suh Unavailable Unavailable Alphonso Vega Unavailable Unavailable Dhaabhiwafrandy, [place] Unavailable Unavailable [place], Rosaline Unavailable Unavailable Orellana, Juana Unavailable Unavailable Allergies and adverse reactions Code CodeSystem Substance Reaction Severity StartDate Concern Status PERCOCET Unknown 05/20/2019 active 7804 RXNORM Oxycodone Unknown 05/20/2019 active 3355 RXNORM Diclofenac Unknown 05/20/2019 active Adhesive Tape Unknown 05/20/2019 active Care Team Name Role Address Phone Organization Dates MILTON MARR PCP [address] [place], [address], [place] (Office): [facility] 02/15/2021 - 03/04/2021 Brigitte Urban [address] [place], [address], [place] (Office): [facility] 02/15/2021 - 03/04/2021 [place], [address], [place] (Office): : [facility] 02/15/2021 - 03/04/2021 Tomás Shawanda [place], [place], [address], [facility] (Office): [facility] 02/15/2021 - 03/04/2021 Tamiko Suh [address] [place], [address], [facility] (Office): [facility] 02/15/2021 - 03/04/2021 Alphonso Vega [address] [facility] [address], [facility] (Office): : [facility] 02/15/2021 - 03/04/2021 Sadiq Vizcarra [address] [facility] [address], [facility] (Office): : [facility] 02/15/2021 - 03/04/2021 Rosaline Familia [address] [place], [address], [facility] (Office): : [facility] 02/15/2021 - 03/04/2021 Juana Orellana [facility] (Office): [facility] 02/15/2021 - 03/04/2021 Immunizations Immunization Status Vaccine Details Vaccine Code CodeSystem Date Notes Influenza completed Influenza, split virus, trivalent, injectable, contains preservative 141 CVX created date: 02/15/2021 administer ed date: 11/24/2020 TB 2 Step Mantoux Skin Test completed tuberculin skin test; unspecified formulation lotNumber: [id number] expiry: 06/15/2022 Mfg: Sanofi Pasteur Given 0.1 ml Left Forearm intradermally Step 2 of Multi-step with next step required 98 CVX created date: 02/25/2021 consent date: 02/25/2021 administer ed date: 02/25/2021 TB 2 Step Mantoux Skin Test completed tuberculin skin test; unspecified formulation lotNumber: [id number] expiry: 06/15/2022 Mfg: sanofi pasteur Given 0.1 ml Left Forearm intradermally Step 1 of Multi-step with next step required 98 CVX created date: 02/15/2021 consent date: 02/15/2021 administer ed date: 02/15/2021 Educated by penelope on 02/15/2021 [id number] completed pneumococcal conjugate vaccine, 13 valent 133 CVX created date: 02/15/2021 administer ed date: 11/11/2014 Tdap (Tetnus, Diptheria and Pertussis) completed diphtheria, tetanus toxoids and acellular pertussis vaccine 20 CVX created date: 02/15/2021 administer ed date: 02/03/2020 Shingrix Vaccine completed zoster vaccine, live 121 CVX created date: 02/15/2021 administer ed date: 11/24/2020 SARS-COV-2 (COVID-19) completed SARS-COV-2 (COVID-19) vaccine, mRNA, spike protein, LNP, preservative free, 100 mcg/0.5mL dose or 50 mcg/0.25mL dose Step 2 of Multi-step with next step required 207 CVX created date: 02/15/2021 administer ed date: 04/29/2020 received Pfizer SARS-COV-2 (COVID-19) completed SARS-COV-2 (COVID-19) vaccine, mRNA, spike protein, LNP, preservative free, 100 mcg/0.5mL dose or 50 mcg/0.25mL dose Step 1 of Multi-step with next step required 207 CVX created date: 02/15/2021 administer ed date: 04/06/2020 received Pfizer SARS-COV-2 (COVID-19) Pfizer BOOSTER completed SARS-COV-2 (COVID-19) vaccine, mRNA, spike protein, LNP, preservative free, 30 mcg/0.3mL dose 208 CVX created date: 02/15/2021 administer ed date: 12/11/2020 Mental Status Section Date Assessment Total Score Description 03/04/2021 BIMS 15 cognitively int act CAM 0 No delirium ind icated PHQ-9 01 minimal depress ion 02/19/2021 BIMS 15 cognitively int act CAM 0 No delirium ind icated PHQ-9 01 minimal depress ion Problems Problem # Description Date of onset Resolved Date Code CodeSystem Concern Status 1 AFTERCARE FOLLOWING JOINT REPLACEMENT SURGERY 02/16/20 21 03/04/[address] completed 2 CHRONIC KIDNEY DISEASE, STAGE 4 (SEVERE) 02/16/20 21 03/04/[address] completed 3 DIFFICULTY IN WALKING, NOT ELSEWHERE CLASSIFIED 02/16/20 21 03/04/[address] completed 4 MUSCLE WASTING AND ATROPHY, NOT ELSEWHERE CLASSIFIED, MULTIPLE SITES 02/16/20 21 03/04/[address] completed 5 MUSCLE WEAKNESS (GENERALIZED) 02/16/20 21 03/04/[address] completed 6 NONDISPLACED PILON FRACTURE OF RIGHT TIBIA, SUBSEQUENT ENCOUNTER FOR CLOSED FRACTURE WITH ROUTINE HEALING 02/16/20 21 03/04/[address] completed 7 OTHER INSTABILITY, RIGHT ANKLE 02/16/20 21 03/04/[address] completed 8 OTHER REDUCED MOBILITY 02/16/20 21 03/04/[address] completed 9 PERIPROSTHETIC FRACTURE AROUND INTERNAL PROSTHETIC RIGHT ANKLE JOINT, SUBSEQUENT ENCOUNTER 02/16/20 21 03/04/[address] completed 10 POST-TRAUMATIC OSTEOARTHRITIS, RIGHT ANKLE AND FOOT 02/16/20 21 03/04/[address] completed 11 PRESENCE OF RIGHT ARTIFICIAL ANKLE JOINT 02/16/20 21 03/04/[address] completed 12 BILATERAL PRIMARY OSTEOARTHRITIS OF HIP 05/20/19 20 06/18/[address] completed 13 CHRONIC KIDNEY DISEASE, STAGE 4 (SEVERE) 05/20/19 20 06/18/[address] completed 14 COGNITIVE COMMUNICATION DEFICIT 05/20/19 20 06/18/[address] completed 15 DIFFICULTY IN WALKING, NOT ELSEWHERE CLASSIFIED 05/20/19 20 06/18/[address] completed 16 DYSPHAGIA, OROPHARYNGEAL PHASE 05/20/19 20 06/18/[address] completed 17 ENCOUNTER FOR SURGICAL AFTERCARE FOLLOWING SURGERY ON THE DIGESTIVE SYSTEM 05/20/19 20 06/18/[address] completed 18 GASTRO-ESOPHAGEAL REFLUX DISEASE WITHOUT ESOPHAGITIS 05/20/1906/18/[address] completed 19 GASTROSTOMY STATUS 05/20/19 20 06/18/[address] completed 20 HYPERPARATHYROIDI SM, UNSPECIFIED 05/20/1906/18/[address] completed 21 HYPERTENSIVE CHRONIC KIDNEY DISEASE WITH STAGE 1 THROUGH STAGE 4 CHRONIC KIDNEY DISEASE, OR UNSPECIFIED CHRONIC KIDNEY DISEASE 05/20/1906/18/[id number] completed 22 MIGRAINE, UNSPECIFIED, NOT INTRACTABLE, WITHOUT STATUS MIGRAINOSUS 05/20/1906/18/[address] completed 23 MIXED HYPERLIPIDEMIA 05/20/1906/18/[address] completed 24 MUSCLE WEAKNESS (GENERALIZED) 05/20/1906/18/[address] completed 25 NAUSEA 05/20/1906/18/[address] completed 26 OBESITY, UNSPECIFIED 05/20/1906/18/[address] completed 27 OTHER ACUTE POSTPROCEDURAL PAIN 05/20/1906/18/[address] completed 28 OTHER SPEECH AND LANGUAGE DEFICITS FOLLOWING CEREBRAL INFARCTION 05/20/1906/18/[address] completed 29 PREDIABETES 05/20/1906/18/[address] completed 30 SEPSIS DUE TO ESCHERICHIA COLI [E. COLI] 05/20/1906/18/[address] completed 31 SLEEP APNEA, UNSPECIFIED 05/20/1906/18/[address] completed 32 TRANSIENT CEREBRAL ISCHEMIC ATTACK, UNSPECIFIED 05/20/1906/18/[address] completed 33 UNSPECIFIED ABDOMINAL PAIN 05/20/1906/18/[address] completed 34 UNSPECIFIED ATRIAL FIBRILLATION 05/20/1906/18/[address] completed 35 UNSPECIFIED PROTEIN-CALORIE MALNUTRITION 05/20/19 20 06/18/[address] completed Reason for Referral No Reasons for Referral Entered Social History Social History Observation Description Start Date End Date Code Code System Current Smoking Status Tobacco smoking consumption unknown 849962536 SNOMED CT Sex Assigned At Female 1945 68210-3 [facility] Gender Identity Vital Signs Code Code System Vitals Name Values and Units Timing Information 32592-5 [facility] O2 % BldC Oximetry Value=93.0 Units= % 03/04/2021 9279-1 [facility] Respiratory Rate Value=16.0 Units=/m in 03/04/2021 8462-4 [facility] Blood Pressure-Diastolic Value=73 Un its=mmHg 03/04/2021 8480-6 [facility] Blood Pressure-Systolic Rqevl=366 Un its=mmHg 03/04/2021 8310-5 [facility] Body Temperature Value=97.9 Units= F 03/04/2021 8867-4 [facility] Heart rate Value=66.0 Units=/min 10/2021 23787-7 [facility] Pain Level Value=0.0 03/02/2021 67257-4 [facility] Weight Xvase=230.2 Units=Lbs 06/2021 8302-2 [facility] Height Value=65.0 Units=Inches 02/15/2021
--- OUTSIDE RECORDS SUMMARY | 2024-08-16 07:56 | XMS_ITS | Encounter Summary ---
Author Organization [facility] Address [address] [place] [address] Care Team Providers Care Body Component Engineer Name Role Phone Nidia Kim DO Primary Care Provider [phone] Reason for Visit * Reason Onset Date Comments Care Management 08/11/2024 CPAP Encounter Details Date Type Department Care Team (Late st Contact Info) Description 08/11/2024 Telephone [facility] Care [facility] [address] [place] [address] Nidia Kim DO [address] [place] [address] Care Management (CPAP) Social History Tobacco Use Types Packs/Day Years [...] on file documented as of this encounter Miscellaneous Notes * Telephone Encounter - Alida Mcclain MA - 08/11/2024 12:31 PM MDT I called and spoke with Susie at [facility] and she stated that the patient is actually under service with [facility] and that I would need to call them with this information. I spoke with Lyndsey and advised her that her appointment for in office CPAP re-evaluation is scheduled for 09/27/24. She noted this in their system. Patient notified of above and verbalized understanding and appreciation. * Telephone Encounter - Augustina Ledesma - 08/11/2024 11:37 AM MDT Patient's Name/Caller's Name and relationship to pt: Lizy Faith / constance Briggs Contact Number: [phone] Reason for Call: Patient called to advise she received a call from [facility] a couple days ago saying Maty needs a reevaluation by her doctor that ordered her CPAP so the insurance will cover it. The call came from [facility]; [phone]. The patient does not have any other information. Patient's provider: Dr Kim documented in this encounter Plan of Treatment Upcoming Encounters Date Type Department Care Team (Late st Contact Info) Description 09/24/2024 12:45 PM MDT Office Visit [place] [facility] [place] [facility] [place] [address] [place] [address] Jos Gagnon MD [address] [facility] [address] [place], [place] [address] 09/27/2024 2:00 PM MDT Office Visit [facility] [address] [place] [address] Nidia Kim DO [address] [place] [address] 10/12/2024 3:00 PM MDT Office Visit [facility] [address] [facility] [address] [place] [address] Rosaline Whalen NP [address] [place] [address] 04/08/2025 9:00 AM [facility] [address] [place] [address] Rosaline Whalen NP [address] [facility] [address] [place] [address] 04/14/2025 11:00 AM MST [facility] [place] [address] [facility] [address] [place] [address] Rosaline Whalen NP [address] [facility] [address] [place] [address] 04/13/2026 9:30 AM [facility] Education [facility] [place] [address] [facility] [address] [place] [address] documented as of this encounter Visit Diagnoses Not on filedocumented in this encounter Care Teams Body Component Engineer Relationship Specialty Start Date End Date Nidia Kim DO [address] [place] [address] PCP - General Sports Medicine 7/28/24 documented as of this encounter
--- OUTSIDE RECORDS SUMMARY | 2024-08-16 07:56 | XMS_ITS | Clinical Summary ---
Author Organization [facility] Health Address [address] [facility] [place] [address] Care Team Providers Care Warehouse Guard Name Role Phone Unavailable Primary Care Provider Unavailabl e Allergies Active Allergy Reactions Criticality Noted Date Comments Diclofenac Low 02/08/2019 Other reaction(s): GI Intolerance, Nausea/Vomiting Diarrhea/kidney issues Oxycodone Anxiety Low 07/16/2021 Other reaction(s): Altered Mental Status PT REPORTS HALLUCINATIONS W OXYCODONE Oxycodone-Acetaminophen Low 05/06/2019 Other reaction(s): Altered Mental Status Medications aspirin 81 mg tablet Take 81 mg by mouth in the morning. Active acetaminophen (TYLENOL 8 HOUR) 650 mg 8 hr tablet Take 1 tablet by mouth. Active alpha lipoic acid 600 mg tablet Take 1 tablet by mouth 1 (one) time each day. Active Eliquis 2.5 mg tablet 06/22/2021 Active cholecalciferol , VITAMIN D3, 5,000 Units tablet Take 1 tablet by mouth. Active cyanocobalamin (VITAMIN B-12) 1,000 mcg tablet Take 1 tablet by mouth. Active traMADoL (ULTRAM) 50 mg tablet 06/22/2021 Active senna (SENOKOT) 8.6 mg tablet Take 2 tablets by mouth. Active lisinopriL (PRINIVIL,ZESTR IL) 10 mg tablet 07/08/2021 Active Active Problems No known active problems Social History Tobacco Use Types Packs/Day Years Used Date Smoking Tobacco: Never Assessed Comments Unknown Sex and Gender Information Value Date Recorded Sex Assigned at Not on file Legal Sex Female 11:04 AM PDT Gender Identity Not on file Sexual Orientation Not on file Last Filed Vital Signs Vital Sign Reading Time Taken Comments Blood Pressure 127/66 07/16/2021 10:40 AM MDT Pulse 82 07/16/2021 10:40 AM MDT Temperature - - Respiratory Rate - - Oxygen Saturation - - Inhaled Oxygen Concentration - - Weight - - Height - - Body Mass Index - - Plan of Treatment Health Maintenance Due Date Last Done Comments Dental Oral Exam 01/17/2022 07/16/2021 Dental Prophylaxis 01/17/2022 07/16/2021 Dental X-Ray: Bitewings 01/17/2022 07/16/2021 Dental X-Ray: Panoramic 07/17/2024 07/16/2021 Dental X-Ray: Full Mouth 10/18/2024 10/17/2021, 06/25 Procedures Procedure Name Priority Date/Time Associated Diagnosis Comments PANORAMIC RADIOGRAPHIC IMAGE Routine 07/16/2021 10:30 AM MDT PROPHYLAXIS - ADULT Routine 07/16/2021 1 0:30 AM MDT INTRAORAL - COMPREHENSIVE SERIES OF RADIOGRAPHIC IMAGES Routine 07/16/2021 10:30 AM MDT COMPREHENSIVE ORAL EVALUATION - NEW OR ESTABLISHED PATIENT Routine 07/16/2021 10:30 AM MDT from Last 3 Months or Most Recently Relevant to Health Maintenance [place] [address] [place] [address] PPO [place] [id number]
--- OUTSIDE RECORDS SUMMARY | 2024-08-16 07:56 | XMS_ITS | Encounter Summary ---
Author Organization [employer] [facility] [employer] Address [address] [place] [address] Care Team Providers Care Shipping & Receiving Lead Name Role Phone LorenaNidia alvarado Primary Care Provider [phone] Reason for Visit * Reason Comments Med Refill Encounter Details Date Type Department Care Team (Late st Contact Info) Description 08/03/2023 Refill [facility] [place] [address] [place] [address] Rebekah Abrams, LITHOGRAPHIC STRIPPER [address] [place] [address] Social History Tobacco Use Types Packs/Day Years Used Date Smoking Tobacco: Former Cigarettes 2 20 0 02/24/1965 - 02/24/1985 Smokeless Tobacco: Never Alcohol Use Standard Drinks/Week Comments Yes 0 (1 standard drink = 0.6 oz pur [...] Answer Date Recorded PHQ-2 Total Score 0 06/25/2023 Comments No Sex and Gender Information Value Date Recorded Sex Assigned at Not on file Legal Sex Female 3:08 PM MDT Gender Identity Not on file Sexual Orientation Not on file documented as of this encounter Miscellaneous Notes * Telephone Encounter - Surjit Fernandez MA - 08/04/2023 9:33 AM MDT Our records indicate that this patient is no longer under the care of any of the providers within [facility] [place]. Patient will need to reach out to their new Fuel Efficient Aircraft Designer or Primary Care Provider. Refill not appropriate at this time. documented in this encounter Plan of Treatment Upcoming Encounters Date Type Department Care Team (Late st Contact Info) Description 09/24/2024 12:45 PM MDT Office Visit [facility] [facility] [address] [facility] [address] [place] [address] Jos Gagnon MD [address] [facility] [address] [place] [address] 09/27/2024 2:00 PM MDT Office Visit [facility] Primary Care [facility] [address] [place] [address] Nidia Kim DO [address] [place] [address] 10/12/2024 3:00 PM MDT Office Visit [facility] [place] [address] [facility] [address] [place] [address] Rosaline Whalen NP [address] [facility] [address] [place] [address] 04/08/2025 9:00 AM MST Appointment [facility] [address] [place] [address] Rosaline Whalen NP [address] [place] [address] 04/14/2025 11:00 AM MST Office Visit [facility] [address] [facility] [address] [place] [address] Rosaline Whalen NP [address] [facility] [address] [place] [address] 04/13/2026 9:30 AM MST Education [facility] [address] [facility] [address] [place] [address] documented as of this encounter Visit Diagnoses Not on filedocumented in this encounter Care Teams Shipping & Receiving Lead Relationship Specialty Start Date End Date Nidia Kim DO [address] [place] [address] PCP - General Sports Medicine 09/21/23 documented as of this encounter
--- OUTSIDE RECORDS SUMMARY | 2024-08-16 07:56 | XMS_ITS | Data Portability ---
Author Organization [place] [facility] Address [address] [place] [address] Care Team Providers Care Mechanical Engineering Officer Name Role Phone DOUGIE FRIAS Primary Care Provider Assessment Encounter Date Assessment Date Assessment LastModified by Organization Details LastModified Time 02/22/2020 02/22/2020 Overview/History : 74-year-old female new to [employer] [facility] with history of renal cell carcinoma status [...] I have accessed patient records on the [employer]. This information was pertinent in my medical decision making today. Not available 02/22/2020 22:06:03 Plan of Treatment Reminders Order Date Submit Date Provider Last Modified By Organization Details Last Modified Time Details Appointments None recorded. Lab culture, urine 2019 020 ARBEN [facility], [address], [address], [place], [address], 1 12:47:05 urinalysis , dipstick 2019 [facility], [address], [place], [address], 0 21:39:27 Referral None recorded. Procedures None recorded. Surgeries None recorded. Imaging None recorded. Medication Orders cephalexin 250 mg capsule 2019 Not available 0 22:07:13 cephalexin 500 mg capsule 2019 [id number], [address] [facility], [place], [place], [id number], 0 21:45:55 Patient TargetsNo targets recorded. Patient Instructions Encounter Date Encounter Id Patient Instructions Last Modified By Organization Details Last Modified Time 02/22/2020 [id number] Urinary Tract Infection (UTI) in Women: Care [...] back. Care instructions adapted under license by [facility]. This care instruction is for use with your licensed healthcare professional. If you have questions about a medical condition or this instruction, always ask your healthcare professional. [employer] disclaims any warranty or liability for your use of this information. Not available 02/22/2020 21:37:54 Reason for Referral None Reported. Results Created Date Observation Date Name Description Value Unit Range Abnormal Flag Note LastModifiedBy Organization Detail LastModifiedTime 02/22/20 20 02/22/2020 urina lysis , dipst ick Appearance cloudy Not Available [facility] [address], [place], [address], 02/22/2020 21:36:45 02/22/20 20 02/22/2020 urina lysis , dipst ick Color yellow Not Available [facility] [address], [place], [address], 02/22/2020 21:36:45 02/22/20 20 02/22/2020 urina lysis , dipst ick Glucose negati ve Not Available [facility] [address], [place], [address], 02/22/2020 21:36:45 02/22/20 20 02/22/2020 urina lysis , dipst ick Bilirubin negati ve Not Available [facility] [address], [place], [address], 02/22/2020 21:36:45 02/22/20 20 02/22/2020 urina lysis , dipst ick Ketones NEG Not Available [facility] [address], [place], [address], 02/22/2020 21:36:45 02/22/20 20 02/22/2020 urina lysis , dipst ick Sp. [place] 1.02 Not Available [facility] [address], [place], [address], 02/22/2020 21:36:45 02/22/20 20 02/22/2020 urina lysis , dipst ick Blood ++ Not Available [facility] [address], [place], [address], 02/22/2020 21:36:45 02/22/20 20 02/22/2020 urina lysis , dipst ick pH 5 Not Available [facility] [address], [place], [address], 02/22/2020 21:36:45 02/22/20 20 02/22/2020 urina lysis , dipst ick Protein positi ve Not Available [facility] [address], [place], [address], 02/22/2020 21:36:45 02/22/20 20 02/22/2020 urina lysis , dipst ick Urobilirubin negati ve Not Available [facility] [address], [place], [address], 02/22/2020 21:36:45 02/22/20 20 02/22/2020 urina lysis , dipst ick Nitrites +++ Not Available [facility] [address], [place], [address], 02/22/2020 21:36:45 02/22/20 20 02/22/2020 urina lysis , dipst ick Leukocytes +++ Not Available [facility] [address], [place], [address], 02/22/2020 21:36:45 02/22/20 20 02/26/2020 cultu re, urine urine culture, routine Final report abnormal Not Available [facility] ([facility]) [address] [facility], [place], [address], 02/26/2020 18:07:01 02/22/20 20 02/26/2020 cultu re, [...] Prote us mirab ilis. Not Available [facility] ([facility]) [address] [facility], [place], [address], 02/26/2020 18:07:01 02/22/20 20 02/26/2020 cultu re, [...] thopr im/Trammell lfa S Not Available [facility] ([facility]) [address] [facility], [place], [address], 02/26/2020 18:07:01 Result Notes None recorded. Medical Equipment None Reported. Allergies Allergen ID Allergen Name Allergen Category Reaction Reaction Severity Criticality Documentation Date Start Date Code Code System Note Provider Name and Address Organization Details Recorded Time 901276 acetamino phen / oxycodone medicatio n Not available Not available Not available 02/22/2020 19099 3 RxNorm INDIRA GLEZ, RESIN COATER [address] [place], [address], [place] [facility] 0 21:25:53 [...] [degF] 146 mm[Hg] 80 mm[Hg] Not Available [facility] 0 21:31:51 Social History Question Answer Notes LastModified by Organizat ion Details LastModified Time Tobacco Smoking Status Former Smoker INDIRA GLEZ, RESIN COATER [address] [place], [address], [place] [facility] 02/22/2020 21:27:58 Within The [...] SNOMED-CT Code Diagnosis ICD10 Code Diagnosis Note [id number] INDIRA GLEZ NP [facility] [address] [place] [address] 02/22/2020 21:18:35 02/22/2020 22:20:19 Urinary tract infectious disease 52481899 N39.0 GFR 26 Acute urin yuliet tract infection 056608921 N39.0 Health Concerns Section Related Observation LastModified by Organization Detai ls LastModified Time None Recorded Concern Status LastModified by Organization Details LastModified Time None Recorded Advance Directives Directive None Recorded Payers Insurance Date Sequence Insurance Name Policy Number Policy Renteria Covered Member ID Renteria Member ID Guarantor Name 02/22/2020 1 *SELF PAY* Lizy Faith [id number] Lizy Faith 02/22/2020 1 [facility] (MEDICARE REPLACEMENT/A DVANTAGE - HMO) [id number] Lizy Faith [id number] Lizy Faith Notes Date Note Type Note [...] fever (notes 99 temp). INDIRA GLEZ NP [address] [place], [address], [place] [facility] 02/22/2020 22:06:17 OBGyn Episode No OBEpisode recorded.
--- OUTSIDE RECORDS SUMMARY | 2024-08-16 07:56 | XMS_ITS | Encounter Summary ---
Author Organization [facility] Health Address [address] [place] [address] Care Team Providers Care Kennel Technician Name Role Phone Unavailable Primary Care Provider Unavailabl e Prior Encounters Date Type Department Care Team Description 07/16/2021 10:30 AM MDT Office Visit [facility] [address] [place] [address] Kenn Mccray III, DDMelyssa Last Filed Vital Signs Vital Sign Reading Time Taken Comments Blood Pressure 127/66 07/16/2021 10:40 AM MDT Pulse 82 07/16/2021 10:40 AM MDT Temperature - - Respiratory Rate - - Oxygen Saturation - - Inhaled Oxygen Concentration - - Weight - - Height - - Body Mass Index - - Plan of Treatment Not on file Procedures Procedure Name Priority Date/Time Associated Diagnosis Comments ORAL HYGIENE INSTRUCTIONS Routine 2021 10:30 AM MDT PROPHYLAXIS - ADULT Routine 07/16/2021 1 0:30 AM MDT INTRAORAL PHOTO Routine 07/16/2021 10:30 AM MDT INTRAORAL PHOTO Routine 07/16/2021 10:30 AM MDT INTRAORAL PHOTO Routine 07/16/2021 10:30 AM MDT INTRAORAL PHOTO Routine 07/16/2021 10:30 AM MDT PANORAMIC RADIOGRAPHIC IMAGE Routine 07/16/2021 10:30 AM MDT INTRAORAL - COMPREHENSIVE SERIES OF RADIOGRAPHIC IMAGES Routine 07/16/2021 10:30 AM MDT COMPREHENSIVE ORAL EVALUATION - NEW OR ESTABLISHED PATIENT Routine 07/16/2021 10:30 AM MDT 2 ROOT CANAL Routine 07/16/2021 12:00 AM MDT 10 ZIRCONIA CROWN Routine 07/16/2021 12: 00 AM MDT 10 DENTAL IMPLANT Routine 07/16/2021 12: 00 AM MDT 20 PFM CROWN Routine 07/16/2021 12:00 AM MDT 15 PFM CROWN Routine 07/16/2021 12:00 AM MDT 14 PFM CROWN Routine 07/16/2021 12:00 AM MDT 12 PFM CROWN Routine 07/16/2021 12:00 AM MDT 11 PFM CROWN Routine 07/16/2021 12:00 AM MDT 5 PFM CROWN Routine 07/16/2021 12:00 AM MDT 3 PFM CROWN Routine 07/16/2021 12:00 AM MDT 15 ROOT CANAL Routine 07/16/2021 12:00 AM MDT 6 ROOT CANAL Routine 07/16/2021 12:00 AM MDT 2 BENSON METAL CROWN Routine 07/16/2021 1 2:00 AM MDT 32 MO COMPOSITE FILLING Routine 07/17/19 12:00 AM MDT 31 O COMPOSITE FILLING Routine 12:00 AM MDT 7 DL COMPOSITE FILLING Routine 12:00 AM MDT 29 DO AMALGAM FILLING Routine 07/16/2021 12:00 AM MDT 17 O AMALGAM FILLING Routine 07/16/2021 12:00 AM MDT 13 DO AMALGAM FILLING Routine 07/16/2021 12:00 AM MDT 4 MOD AMALGAM FILLING Routine 07/16/2021 12:00 AM MDT 1 MO AMALGAM FILLING Routine 07/16/2021 12:00 AM MDT 18 ZIRCONIA CROWN Routine 07/16/2021 12: 00 AM MDT 19 ZIRCONIA CROWN Routine 07/16/2021 12: 00 AM MDT 18 DENTAL IMPLANT Routine 07/16/2021 12: 00 AM MDT 19 DENTAL IMPLANT Routine 07/16/2021 12: 00 AM MDT Visit Diagnoses Not on file Insurance [facility] P[facility] [place] [id number]
--- OUTSIDE RECORDS SUMMARY | 2024-08-16 07:56 | XMS_ITS | Clinical Summary ---
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 Indications: prevention of vitamin D deficiency Active acetaminophen (TYLENOL) 650 MG 8 hr tabletIndicati ons:pain Take 1 tablet by mouth every 8 hours as needed for mild pain Indications: pain. Not to exceed the recommended amount of 3,000 mg of Acetaminophen from all sources in 24 hours. Active senna (SENOKOT) 8.6 mg tabletIndicati ons:constipati on Take 2 tablets by mouth daily Indications: constipation. Active aspirin 81 MG EC tablet Take 81 mg by mouth daily. Active calcitRIOL (ROCALTROL) 0.25 MCG capsule TAKE 1 CAPSULE BY MOUTH DAILY 100 capsule 2 12/18/19 23 Active ergocalciferol (DRISDOL) 1,250 mcg (50,000 unit) capsule TAKE 1 CAPSULE BY MOUTH TWICE A MONTH 03/07/19 24 Active vitamins Y3-W8-F3-B12-p rotease 2.5 mg-2.5 mg- 5 mg-100 mcg tablet Take 1 tablet by mouth daily. Active alpha lipoic acid (LIPOIC ACID MISC) Active vitamin B complex (METANX) capsule Take 1 capsule by mouth daily. Active benzonatate (TESSALON) 100 MG capsule Take 1 capsule (100 mg) by mouth 3 times a day as needed for cough. 30 capsule 03/10/19 25 Active albuterol 90 mcg/actuation inhaler Inhale 2 puffs by mouth every 4 hours as needed for shortness of breath or wheezing. 18 g 3 03/10/19 25 026 Active HYDROcodone-ac etaminophen (NORCO) 5-325 mg per tablet Take 1 tablet by mouth every 6 hours as needed for moderate pain. Max Daily Amount: 4 tablets 12 tablet 03/10/19 25 Active lisinopriL (ZESTRIL, PRINIVIL) 10 MG tablet TAKE 1 TABLET BY MOUTH DAILY 100 tablet 2 05/17/19 25 Active clopidogreL (PLAVIX) 75 mg tablet Take 1 tablet (75 mg) by mouth daily. 90 tablet 1 05/29/19 25 025 Active tirzepatide (weight loss) (ZEPBOUND) 2.5 mg/0.5 mL pen injectorIndica tions:obstruct andi sleep apnea syndrome,weigh t loss management for obese patient (bmi >= 30) Inject 0.5 mL (2.5 mg) under the skin once a week Indications: sleep apnea due to airway obstruction, weight loss management for a person with obesity. 2 mL 2 07/31/19 25 Active tirzepatide (weight loss) (ZEPBOUND) 2.5 mg/0.5 mL pen injectorIndica tions:obstruct andi sleep apnea syndrome,weigh t loss management for obese patient (bmi >= 30) Inject 0.5 mL (2.5 mg) under the skin once a week Indications: sleep apnea due to airway obstruction, weight loss management for a person with obesity. 2 mL 2 06/24/19 25 025 Discontin ued(Reord er) Active Problems Problem Noted Date Diagnosed Date MINNA (obstructive sleep apnea) 06/14/2024 Assessment & Plan (06/23/2024 10:02 AM MDT): Moderate sleep apnea on recent study Will send order to [facility] for CPAP machine with 1lpm oxygen added. Start Tirzepatide weekly for MINNA to aide in weight loss contributing to sleep apnea. Medication side effects discussed. Follow up with me in 3 months Assessment & Plan (06/14/2024 6:10 AM MDT): Sleep poor. Trouble losing weight AM headaches. Needs sleep study Apnea, not elsewhere classified 06/09/2024 Multinodular goiter 06/09/2024 Presence of Watchman left atrial appendage closu re device 04/15/2024 Overview (04/15/2024): Patient referred by Dr Gagnon for LAAO consideration due to desire to stop eliquis for paroxysmal Atrial fibrillation (not previously treated with DCCV and ablation) because of fall risk, increased thromboembolic stroke risk, clinically significant bleeding risk, medication non compliance). [id number] = 7 (HTN, Age x2, Pre-DM, Prior CVA/TIA or Thomboembolism x2, Gender) HASBLED =4 (abnormal renal function, age, previous stroke, medications- anti plt). On 04/13/24 patient underwent LAAO with #[address] Cole. No immediate complications. Assessment & Plan (05/25/2024 9:28 AM MDT): Since last LAAO visit, no rehospitalization, thromboembolic events, bleeding events or any other repeat imaging or labs than listed below. Lab Results Component Value Date CREATININE 2.36 (H) 04/15/2024 Lab Results Component Value Date HGB 11.6 (L) 04/13/2024 No results found. Re-reviewed GONZALO closure procedure in detail. GONZALO closure/device implantation is utilized to decrease risk of CVA due to atrial fibrillation. It appears to be as efficacious as Coumadin for CVA prevention in patients with non-valvular atrial fibrillation. Per the [place] Fx trial patients who undergo Watchman implantation have a 96.2% success rate in ability to discontinue OAC/NOAC at 45 day post implantation. Explained that this procedure does not reduce the incidence of atrial fibrillation. It is solely, in effort to be able to stop OAC/NOAC. Will perform YOLANDA at 45 days as scheduled on 05/28/24. I see no concern for proceeding as planned with this procedure on this date. H/P has been updated as above. Reviewed pre-procedure instructions. Explained that we will contact the patient the day of the YOLANDA or the following business day to explain results and Rx appropriate therapy. As long as there is less than a 5mm leak will then transition to DAPT. Pt will need to stay on DAPT for an additional 4.5 months (total 6 months post implant). If no further issues, will then transition to ASA 81mg lifelong. Assessment & Plan (04/22/2024 2:[address] [facility]): Patient seen today in follow up after her visit las week for multiple complaints of pain and cramping. She was given colchcine but never filled it. Her symptoms self resolved. Lab Results Component Value Date GLUCOSE 91 04/15/2024 CALCIUM 9.3 04/15/2024 NA 143 04/15/2024 K 4.6 04/15/2024 CO2 18 (L) 04/15/2024 CL 110 (H) 04/15/2024 BUN 56 (H) 04/15/2024 CREATININE 2.36 (H) 04/15/2024 Cr was near her baseline at that time. Since that visit, all of her symptoms resolved. Reviewed plan of care. Assessment & Plan (04/15/2024 10:[address] [facility]): Patient seen today urgently for multiple complaints. Since her LAAO she describes pain all over her body that she classifies as cramping or lactic acid type feeling. Her pain is mostly in her chest and worsens when she takes a deep breath. Patient received transition of care phone call on 04/14/24. Discharge summary has been reviewed as well as appropriate other hospital documents. The problem list has been updated. Medications have been reconciled. The plan of care has been adjusted to reflect the recent hospitalization, and the patient's goals of care. The patient's functional status has been reviewed and appropriate supportive services are in place. Appropriate follow-up appointments with consulting providers have been set up. Groin site without complication. EKG completed today without complication. Patient has been educated on when to call our office and when to seek emergent care related to his procedure. Follow-up scheduled with repeat echo and visit with me at 1 month. Concern for pericarditis vs inflammation following anesthesia given her CKD. Will check BMP today. Asked patient to push oral fluids If she has continued chest discomfort I did Rx a week of colchicine. Ventral hernia without obstruction or gangrene 0 06/25/2023 History of left hip replacement 05/31/2022 Assessment & Plan (05/31/2022 12:45 PM MDT): Audible click with walking. Ortho referral sent. 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): Patient is a class III risk, at 6.6% risk of a major cardiac event. EKG is normal, no evidence of ischemia. Patient is able to perform at least 4 METS of activity. No further cardiac work-up indicated. Patient has history of CVA and postop DVT, patient will resume Eliquis post-op. Creatinine elevated at 2.4. Will monitor labs. Labs ordered, pending results at this time. Patient is medically optimized for low risk surgery. Follow-up with PCP as needed. Skin tags, multiple acquired 10/12/2021 Assessment & Plan (10/12/2021 9:39 AM MDT): Multiple benign appearing skin tags. Derm referral placed for general skin exam Tendinopathy of right rotator cuff 09/25/2021 Assessment & Plan (01/22/2022 1:17 PM MST): Chronic right shoulder rotator cuff arthropathy with known complete tear of the rotator cuff. She elected for repeat palpation guided subacromial cortisone injection. She can repeat this injection in 3 to 4 months as warranted. All questions were answered prior to the patient leaving the office. Assessment & Plan (12/11/2021 11:21 AM MDT): Chronic right shoulder rotator cuff arthopathy with full thickness tear of rotator cuff and underlying GH arthritis. Her shoulder is not painful at the current time and she is able to most of her activities of daily living without pain. Discussed prognosis of tore rotator cuff which appears chronic and underlying arthritis. Can do injections for pain relief. Could consider surgical consultation for reverse total shoulder replacement. At the current time she will see how she does over the next several weeks/months. If pain worsens or function decreases she will call for follow up. Assessment & Plan (09/26/2021 8:17 AM MDT): Luis Armando was seen and evaluated today for right shoulder pain that seems consistent with a chronic rotator cuff tearing. Diagnosis and treatment was discussed while she was in the office today. She has severe pain with range of motion and positive impingement signs today. She elected to proceed forward with a palpation guided right shoulder subacromial cortisone injection. I would like her to also start formal physical therapy for strength and range of motion. She will follow-up with me as needed. All questions were answered prior to the patient leaving the office. Periprosthetic fracture arou nd internal prosthetic ankle joint, initial encounter 02/14/2021 Arthritis of right ankle 02/29/2020 Assessment & Plan (01/17/2021 9:[address] [facility]): Total ankle replacement surgery scheduled for Feb 05, [address] Mayito Alanis. Assessment & Plan (08/22/2020 3:31 PM MDT): No longer getting any improvement with intra-articular ankle injections. She has seen Dr. Alanis in the past. Referral placed to his office. Follow-up with me as needed. Assessment & Plan (05/18/2020 8:04 AM MDT): Luis Armando was seen in follow up for right ankle arthritis. She had a successful ultrasound guided right ankle joint injection done today. Ultrasound was used to verify needled placement and avoid neurovascular injury. Aftercare injection instructions were discussed. She will follow up as needed. Assessment & Plan (02/29/2020 1:55 PM MST): She has known right ankle arthritis. She has a general sensation of instability. Currently the pain is not severe enough to consider cortisone injection so she will start a physician directed home exercise program to help with strength and proprioception. If pain worsens I would recommend an ultrasound-guided right ankle joint injection. Arthritis of left knee 02/29/2020 Assessment & Plan (02/29/2020 1:56 PM MST): Known left knee arthritis which was confirmed on x-rays today. She did get improvement from the cortisone injection that was completed in November. It is too early to repeat it currently but overall she does feel like she has continued improvement. She will monitor her symptoms and she is eligible for an injection at the end of February if needed. Spondylosis of lumbar region without myelopathy or radiculopathy 02/29/2020 Assessment & Plan (02/29/2020 1:44 PM MST): Low back pain that seems consistent with a flare of underlying degenerative changes of the lumbar spine. There are no red flags to warrant any urgent advanced imaging. She will work on home stretching activities. I would recommend a [id number] topical Salonpas. She has had stomach upset and sensitivity to even topical Voltaren in the past. Continue to monitor over the next couple weeks. Degenerative arthritis of left knee 12/17/2019 Assessment & Plan (12/17/2019 3:43 PM MDT): Left knee pain that is consistent with underlying osteoarthritis. Diagnosis and treatment was discussed while she was in the office today. Given the limited ability she has for any regular walking activities she elected for a palpation guided cortisone injection of the left knee. Aftercare injection instructions were discussed. If she does not get any significant symptomatic improvement we did discuss the possibility of doing x-rays in the near future. She will follow-up with me at [facility]. Chronic anticoagulation 10/10/2019 Overview (09/24/2023): Patient referred by Dr Gagnon for LAAO consideration due to desire to stop eliquis for paroxysmal Atrial fibrillation (not previously treated with DCCV and ablation) because of fall risk, increased thromboembolic stroke risk, clinically significant bleeding risk, medication non compliance). [id number] = 7 (HTN, Age x2, Pre-DM, Prior CVA/TIA or Thomboembolism x2, Gender) HASBLED =4 (abnormal renal function, age, previous stroke, medications- anti plt). Assessment & Plan (09/24/2023 3:27 PM MDT): Patient has had the following bleeding issues: GIB:N Nose Bleed:N Head Bleed:N Nuisance Bleed:Y Patient has not previously used any other agents for anticoagulation. Other pertinent medical history includes: Provoked left lower extremity VTE with confirmation from primary care provider that there was no need for chronic anticoagulation due to this, cerebrovascular accident in 2020, obstructive sleep apnea on CPAP, impaired glucose tolerance/prediabetes, mild AI, CKD stage IV due to renal cell carcinoma status post nephrectomy. CHF: N (NYHA Class N/A), EF: 60% (most recently obtained on 09/10/23 it is wrote ) Valvular Heart Disease: MILD AI Pericarditis:N Autoimmune Disease:N Hiatal Hernia: N Recurrent Falls:N Open Wounds: N Atrial Flutter:N Diabetes: Y PRE DM If so meds taken: N Sleep Apnea: Y if so CPAP/BiPAP: Y Chronic Lung disease: N if so on O2:N Previous Cardiac Surgery:N if so GONZALO ligation: N Previous Structural intervention: N Previous LAAO Attempt: N DVT:Y PROVOKED 2019 PE:N Stroke/TIA:Y 2019 Bleeding Disorder:N Clotting Disorder: N Recent hospitalizations: N Recent Labs: Lab Results Component Value Date WBC 8.4 09/21/2023 HGB 11.6 (L) 09/21/2023 HCT 35.5 (L) 09/21/2023 MCV 105 (H) 09/21/2023 PLT 184 09/21/2023 Lab Results Component Value Date GLUCOSE 113 (H) 09/21/2023 BUN 58 (H) 09/21/2023 CREATININE 2.49 (H) 09/21/2023 EGFR 19.3 (L) 09/21/2023 BCR 23 09/21/2023 NA 143 09/21/2023 K 4.5 09/21/2023 CL 120 (H) 09/21/2023 CO2 14 (L) 09/21/2023 CALCIUM 9.2 09/21/2023 PROTEIN 6.8 09/21/2023 ALBUMIN 3.6 09/21/2023 GLOB 3.2 09/21/2023 AGRATIO 1.1 09/21/2023 BILITOT 0.3 09/21/2023 ALKPHOS 56 09/21/2023 AST 11 09/21/2023 ALT 17 09/21/2023 Allergies: Drug allergies: Allergies Allergen Reactions Diclofenac Nausea/Vomiting Diarrhea and kidney issues Diclofenac Sodium GI Intolerance Diarrhea/kidney issues Oxycodone Anxiety and Altered Mental Status PT REPORTS HALLUCINATIONS W OXYCODONE Percocet [Oxycodone-Acetaminophen] Altered Mental Status Allergies to nickel: N Allergies to ASA: N Allergies to IV dye/shellfish: N Allergies or problems in past with anesthesia: N Preprocedure imaging available: CT N (N); YOLANDA: N (N) Shared Decision Making: Patient is able and willing to take short term oral anticoagulation and has a clinical reason to not take long-term oral anticoagulants. 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 Together we participated in a Shared Decision using the NICE Tool. We recommend LAAC given this patient's high risk of AF-related stroke but also elevated risk of major bleed on detention anticoagulation. Reviewed GONZALO closure procedure in detail. GONZALO closure/device implantation is utilized to decrease risk of CVA due to atrial fibrillation. It appears to be as efficacious as Coumadin for CVA prevention in patients with non-valvular atrial fibrillation. Per the [place] Fx trial patients who undergo Watchman implantation have a 96.2% success rate in ability to discontinue OAC/NOAC at 45 day post implantation. Explained that this procedure does not reduce the incidence of atrial fibrillation. It is solely, in effort to be able to stop OAC/NOAC. Reviewed risks of procedure, including but not limited to, risk of perforation, embolization, stroke, , need for emergent open heart surgery or the possibility of aborted procedure day of implant if we find that the left atrial appendage is not amendable to device implantation . Reviewed anticipated medical management post procedure. Pt understands that they will need to take NOAC/OAC plus aspirin 81mg x 45 days. Will perform YOLANDA at 45 days. As long as there is less than a 5mm leak will then transition to DAPT. Pt will need to stay on DAPT for an additional 4.5 mos (total 6 mos post implant). If no further issues, will then transition to ASA 81mg lifelong. Reviewed anticipated pre and post operative course. Explained that it is imperative that patient be adherent to medication and imaging guidelines. Patient understands that they are responsible to find out copays, etc for this testing and acknowledges that they will be compliant with plan of care due to safety concerns. Patient understands that they will remain responsible for their medication costs during the perioperative period. Patient would like to have her watchman implant with Dr. Cole due to the desire to avoid contrast. I feel this is reasonable due to her chronic kidney disease. She is to touch base with her plant physiology teacher to ensure that they are okay with the plan of care. I am awaiting the new schedule for Dr. Cole and I will reach out to the patient once we have the schedule completed or if the patient cancels for his upcoming procedural day. Stercoral ulcer of large intestine 07/07/2019 Anemia due to stage 4 chronic kidney disease (CM S/HCC) 06/23/2019 Assessment & Plan (09/24/2023 2:44 PM MDT): Increases perioperative risk. Assessment & Plan (01/17/2021 9:[address] [facility]): Most recent Hgb 12.[address] Haynes Assessment & Plan (06/23/2019 10:28 AM MDT): Baseline Hgb around 8 Check CBC in 2 weeks Continue iron and B12 supplement. Anxiety 06/23/2019 Assessment & Plan (06/23/2019 10:30 AM MDT): Worsening with recent changed in current health Doing well with remeron - cont for now Consider referral in future to help navigate chronic medical problems CVA (cerebral vascular accident) 05/10/2019 Assessment & Plan (09/24/2023 2:45 PM MDT): No residual deficit Increases perioperative risk. Assessment & Plan (01/17/2021 9:[address] [facility]): No residual deficit. Continue eliquis and okay to stop as needed for surgery Assessment & Plan (03/03/2020 11:[address] [facility]): MRI brain shows chronic ischemic changes in left occipital lobe, now also with new ischemic area in parietal lobe. Discussed secondary stroke prevention Start baby aspirin Increase lipitor dose to 20mg daily. Has long standing history of being intolerant to statins in the past so hesitant to increase dose. Has appropriate neurology follow up in 1.5 weeks Assessment & Plan (01/12/2020 7:[address] [facility]): Recurrent. Now with peripheral vision loss. Check MRI brain On Eliquis already. Potentially may need to switch to xarelto - will double check this. Start statin. ECHO with bubble study negative in April 2019. May need neurology follow up - pending imaging. Assessment & Plan (06/23/2019 10:13 AM MDT): Reports she was told only to take ASA for previous TIA. Discussed potential secondary stroke prevention and she is not ready to start other medications at this time. No focal deficit from possible stroke. Continue to monitor. Assessment & Plan (05/10/2019 7:31 PM MDT): 04/27/2019 MRI brain showed small old right cerebellar lacunar infarct Newly diagnosed atrial fibrillation 05/10/2019 Recommend stroke risk reduction including statin, blood pressure control, additional risk factor modification in the outpatient setting and now oral anticoagulation Paroxysmal atrial fibrillation 05/10/2019 Assessment & Plan (06/23/2019 10:23 AM MDT): NSR in office today with no evidence of recurrence of a fib per chart review Cont ASA and monitor. Assessment & Plan (05/10/2019 7:51 PM MDT): New onset atrial fibrillation post operatively (05/06 Exploratory laparotomy, left hemicolectomy, wound VAC for laparotomy open abdomen; 05/08, laparotomy, colostomy creation) in the setting of E. coli positive blood cultures fever, and septic shock. Levophed being weaned 05/10/2019 04/28/2019 echo EF 60%, mild AI, agitated saline bubble study performed with and without Valsalva was negative for shunting, normal RV size/systolic function, RVSP cannot be determined due to incomplete TR jet, estimated CVP ~8 cm. Creatinine 2.2 with baseline likely 1.7-2.0 and known chronic kidney disease Additional CVA risk factors include prior history of stroke, hypertension, age greater than 65. Of note, patient does have MINNA history. Atrial fibrillation rate controlled even on Levophed with heart rates trending rate around 100 in the presence of above. Focus on rate control/anticoagulation. PLAN: 1. Wean off Levophed 2. Start beta-loraine when able and utilize this for antihypertensive therapy. Patient might need GABE inhibitor added on as outpatient noting her chronic kidney disease 3. Recommend Eliquis 5 mg twice daily when okay with surgery 4. Electrolytes look reasonable. Will check TSH/free T4 for completeness as I do not see this in the recent record. Recommend treat as indicated. 5. Recommend careful attention to optimization of her MINNA therapies 6. At this time, cardiology follow-up is somewhat limited noting our COVID 19 adopted schedule. As her atrial fibrillation seems uncomplicated at this time, we would recommend follow-up with her PCP. Should additional cardiology evaluation be needed, we would be happy to help. 7. We will sign off. Please call with questions Postoperative abdominal pain 05/07/2019 TIA (transient ischemic attack) 04/27/2019 Assessment & Plan (04/29/2019 8:07 AM MST): Patient had sudden onset of left arm numbness while at the store, 45 minutes prior to presentation to the ED today No prior history of TIA or CVA CT of the head was negative as was MR and MRA of the head and neck Discussed possibility of TIA versus atypical migraine. The patient does get frequent migraines, oftentimes though without headache. She does get ocular migraines with scotoma and migraine with aura. Patient will be discharged on baby aspirin She has not seen a neurologist for her migraines and does not take medication for her migraines Recommend outpatient neurology follow-up regarding possible TIA versus atypical migraine Patient symptoms have completely resolved and she is at her baseline at discharge Essential hypertension 03/18/2019 Assessment & Plan (09/24/2023 2:45 PM MDT): Increases perioperative risk. Assessment & Plan (12/17/2019 3:44 PM MDT): Borderline low blood pressure on home evaluation. She self discontinued lisinopril. Currently her blood pressure is stable. She will continue to check at home and if she has a blood pressure that goes greater than 130 would recommend that she start half dose of lisinopril at 10 mg. She will call me for follow-up as needed. Assessment & Plan (06/23/2019 10:27 AM MDT): Normal BP today On lisinopril Continue to monitor Assessment & Plan (05/10/2019 9:10 PM MDT): Comorbities of chronic kidney disease (baseline creatinine around 1.7-2), MINNA, PAF, CVA Presents with intra-abdominal infection with need of pressor and obviously home lisinopril stopped New atrial fibrillation 05/10/2019 in the setting of above Levophed is being weaned off Utilize negative chronotropic agents instead of home GABE but possibly add back in a should this be needed given her kidney disease PLAN: 1. Recommend reduced/no use of lisinopril and emphasize beta-loraine, at least in the short-term, noting that her heart rates in sinus rhythm to be able to handle this and patient will need a beta-loraine given her atrial fibrillation. Assessment & Plan (04/29/2019 8:[address] [facility]): Patient with 1 kidney due to renal cell carcinoma hx Will allow for permissive hypertension in the setting of probable TIA Monitor blood pressure Monitor kidney function, BMP in the a.m. Cr improved Assessment & Plan (03/18/2019 6:[address] [facility]): Some elevated blood pressure readings but averaging about 135/86 the patient states. Patient on lisinopril 20 mg/day. Discussed option of doubling it to 40 mg. She wishes to wait till after she sees nephrology in the next week. She is to follow by them for her stage III CKD. Patient with history of left nephrectomy for renal cancer. Patient's just last week of end-stage interstitial lung disease so expect pressures to be high for a while. Patient also having issues with severe GERD and has a history of a LAP-BAND procedure in the past. Will be referred to gastric surgeons. Chronic ankle pain and is seen Dr. Mayito Alanis and had a recent right ankle injection. May be a candidate for ankle fusion or replacement. Chronic back pain seems stable at this time. Dr. Burger had seen her in the past and there was talk of doing a lumbar fusion. Parking sticker was signed today. Spent 40 min,over 50% counseling. Counseled on all recent labs, imaging, specialist records and hos records pertinent to visit. Spinal stenosis of lumbar re gion with neurogenic claudication 03/17/2019 Assessment & Plan (06/25/2023 3:21 PM MDT): Causes back pain and fatigue into legs. Cannot take NSAIDs due to kidney disease Weaned herself off tramadol T/c continue norco, she will call as needed for refill Assessment & Plan (03/18/2019 6:[address] [facility]): Lumbar spine is doing somewhat better recently. Has seen Dr. Burger in the past and there was some consideration of having a lumbar fusion. Kidney stone 02/03/2019 Overview (02/03/2019): [id number] Chronic pain of both feet 11/27/2018 Assessment & Plan (09/24/2023 2:44 PM MDT): Increases fall risk Assessment & Plan (12/17/2019 3:40 PM MDT): Follows with Dr Alanis Assessment & Plan (03/18/2019 6:53 AM MST): Patient currently seeing Dr. Mayito Alanis. 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 She recently had a right ankle injection which helped for some time. There was some discussion of possibly doing a fusion or even ankle replacements. That will be down the road. Assessment & Plan (11/27/2018 7:31 AM MDT): Patient continues with bilateral ankle and feet pain for over one year. Right is on the lateral side of the ankle and the left is more on the top of the arch and dorsal foot. Had a one-day episode of severe burning pain on the dorsum of 1 foot. Patient is using NSAIDs at times. Patient has had a left nephrectomy for renal carcinoma in her GFR are running around 30 with last 2 being at 25. Impression: Bilateral feet pain. Hyperparathyroidism with recent parathyroidectomy October 19, 2018-also possible cause of bone pain. Plan: Will stop any NSAID. Tramadol was given to use carefully instead. We want to try to protect her kidneys. We'll how much the foot pain is just probable arthritis in the ankles and feet and her much the hyperparathyroidism could be contributing also. Referral to nephrology for decreasing GFR patient with history of renal carcinoma and left nephrectomy. Spent 25 min, over 50% counseling. Counseled on all recent labs, imaging, specialist records and hos records pertinent to visit. 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 She does have a history of hyperparathyroidism. Endocrinology referral placed today. Follow-up with me as needed. Assessment & Plan (05/01/2018 7:[address] [facility]): Patient seen in endocrinology in [place]. Left parathyroid nodule causing hyperparathyroidism has been diagnosed and will need surgery. Also has multiple large nodules on thyroid especially the right side. Right thyroid nodule biopsy to be done next week. Patient has had elevated calciums and now an elevated parathyroid hormone. She has many other muscle skeletal aches and pains especially pain in the feet. We will have to see if this is related to the hyperparathyroidism. First whether thyroid nodule biopsies and then will have parathyroid surgery. This will be done in [place]. Patient also had questions about her immunizations. She has had both pneumonia shots. Tetanus and flu shots are up-to-date. Colon exam August 2017. DEXA August 01, 2008. Mammogram December 2015 and needs to be repeated . Patient also has a chronic back pain and not allow her to be very active. This is allowing chronic edema of the feet possibly causing pain versus hyperparathyroidism? Patient has had both hips replaced. Patient's has just been seen by palliative care for his very severe pulmonary fibrosis. She is handling it quite well Spent 25 min, over 50% counseling. Counseled on all recent labs, imaging, specialist records and hos records pertinent to visit. Balance disorder 06/04/2017 Overview (06/04/2017): PT [id number] approx Assessment & Plan (06/14/2024 6:07 AM MDT): Gait worse and shuffling. Increase in falls due to tripping Recommend PT Assessment & Plan (09/24/2023 2:44 PM MDT): Increases fall risk Assessment & Plan (05/31/2022 12:36 PM MDT): Sever abnormality to her gait and balance. Appears like dysfunction of gluteal muscle. No atrophy. Left hip replacement has a loud pop with ambulation. Doesn't hurt her, but unclear if this causes dysfunction is walking and balance. Also may have some lumbar spinal stenosis that is contributing to being off balance. Assessment & Plan (02/07/2018 1:[address] [facility]): Previous PT for balance and strengthening. Stable Plan: back surgery in near future. Possible Parathyroid abn. Workup in process. Assessment & Plan (06/04/2017 10:07 AM MDT): May need more PT for balance and leg strengthening. Having issues getting around confidently. History of laparoscopic adjustable gastric abdon ng 06/04/2017 Overview (03/18/2019): Gastric band-2009 Assessment & Plan (06/04/2017 10:08 AM MDT): Band procedure. 2008. Pt concerned about possible complications. Osteoarthritis of both hips 01/30/2017 Overview (02/07/2018): Bilateral hip replacement Assessment & Plan (02/07/2018 1:[address] [facility]): Bilateral hip replacement. Stable Plan: cont wt loss and exercise. Ex-smoker 01/30/2017 Overview (01/30/2017): Quit over 39 yrs Dyslipidemia 07/13/2016 Overview (08/04/2018): [id number] Assessment & Plan (04/27/2019 6:[address] [facility]): Will obtain lipid panel Will likely need statin Assessment & Plan (02/03/2019 11:[address] [facility]): FH-noted. IR- 90-52-49-64-76. HDL-ideal #, large HDL-5.2-4.7, average HDL-9.0-8.8. [id number], size-20.9-20.9, small LDL-633-628. Stable overall. in end stage Lung disease. Probable secondary hyperparathyroid now??? Had parathyroid removed recently. ZQF-91-28-25-25-29. Rest of labs normal. Refilled meds (or checked that they are refillable). Reviewed all Dx and meds. Advanced lipid test was reviewed line for line with pt. Discussed genetics of lipid abnormalities. Discussed Wt loss, exercise (smoking cessation if applicable). dying, not able to exercise. Spent 25 min, over 50% counseling. Counseled on all recent labs, imaging, specialist records and hos records pertinent to visit. Assessment & Plan (08/05/2018 7:02 AM MDT): FH-noted. IR- 46-64. HDL-ideal #. 9.3-5.2, 9.7-9.0 size. [id number], size-21.5-20.9, small LDL-560-633. GFR 01-89-62-29-25. Elevated calcium with hyperparathyroidism. Known elevated PTH. Patient to see endocrinology tomorrow. Rest of labs normal. Refilled meds (or checked that they are refillable). Reviewed all Dx and meds. Advanced lipid test was reviewed line for line with pt. Discussed genetics of lipid abnormalities. Discussed Wt loss, exercise (smoking cessation if applicable). Lipids much worse. Patient's and has end-stage interstitial lung disease. It takes him 4 hours just to get ready to go to the doctor's appointment. Patient is under extreme stress with this and we discussed his and palliative care and hospice care and what to do when he dies. She is holding up quite well. Patient sees endocrinology tomorrow for the hyperparathyroid diagnosis with an elevated PTH. She has chronic feet pain and we'll see if it is caused by the hyperparathyroidism problem. If not may need referral to foot doctors. Prolonged visit Spent 40 min,over 50% counseling. Counseled on all recent labs, imaging, specialist records and hos records pertinent to visit. Assessment & Plan (02/07/2018 1:[address] [facility]): Stable lipids . Plan: aggressive lipid management Assessment & Plan (01/23/2018 6:58 AM MST): FH-noted. IR- 44-46. HDL-ideal #. Huge size. [id number], size-21.8-21.5, small LDL-165-560. TG 169-111. GFR 37-24-30-29. Calcium 11.5-10.6-10.8-11.1. Rest of labs normal. Refilled meds (or checked that they are refillable). Reviewed all Dx and meds. Advanced lipid test was reviewed line for line with pt. Discussed genetics of lipid abnormalities. Discussed Wt loss, exercise (smoking cessation if applicable). Patient will have a back surgery 2018 for lumbar back fusion by Dr. Burger. He has been quite inactive due to this. Patient also has chronic bilateral feet pain. Due to elevated calcium and continuing pattern evaluation will draw calcium phosphorus and PTH hormone level. If these tests are negative she wishes to have a referral to podiatry for her chronic feet pain. Spent 25 min, over 50% counseling. Counseled on all recent labs, imaging, specialist records and hos records pertinent to visit. Assessment & Plan (07/15/2017 10:31 AM MDT): FH-noted. IR- 67-62-44. HDL-ideal #. Now ideal size. [id number], size-21.0-21.8, small LDL-492-165. Near ideal test GSW-21-71-30. Rest of labs normal. Refilled meds (or checked that they are refillable). Reviewed all Dx and meds. Advanced lipid test was reviewed line for line with pt. Discussed genetics of lipid abnormalities. Discussed Wt loss, exercise (smoking cessation if applicable). GFR much Better- now 30. Spent 25 min, over 50% counseling. Assessment & Plan (06/04/2017 10:06 AM MDT): Reviewed lipids again today. IR-62. Need exercise. Assessment & Plan (02/18/2017 12:[address] [facility]): FH-clean. IR- 67-62. HDL-[place] # and big size. 9.1 size. LDL- 0427-3135, 21.2- 21.0 size, 525-492 small LDL. Renal-37-24. Rest of labs done. Has only kidney. Statin-muscle pain. Metformin-diarrhea. Will add Actos 30mg. Spent 25 min, over 50% counseling Assessment & Plan (01/30/2017 10:[address] [facility]): Been trying Metformin 500mg ---always gets diarrhea. Maybe add Actos when back in for labs. One kidney-watch GFR closely. Will be back soon to go over labs Assessment & Plan (07/13/2016 4:18 PM MDT): EQ-Rrgpaw-OTV-60's. E-4. IR-71. LLI-lopnv-xg sizes. LDL 4808-0967, 21.2-21.2, 314-525 small LDL. GFR-37-39. Need to restart Metformin for high IR. Will go very slow and low, advance as tolerates to find dosage she can tolerate. Need to help kidney-only has R side-hx of L renal CA. Pt agrees with plan. Refilled all meds. Renew all dx in new EMR. Many complex dx's Spent 40 min, over 50% counseling Migraine 07/13/2016 Overview (02/03/2018): Visual aura only-no headache Assessment & Plan (02/07/2018 1:50 PM MST): Visual aura only, no headache. Stable Plan: XZ-knrfgxvi-atgmrt-brother. Assessment & Plan (01/30/2017 10:10 AM MST): SV-bmqhaybz-xvasbo, brother Allergic rhinitis 07/13/2016 Overview (02/03/2018): Mild Assessment & Plan (02/07/2018 1:51 PM MST): OTC meds used prn. Controlled-stable Plan: Cont OTC as needed Assessment & Plan (07/30/2016 11:15 AM MDT): Take tessalon perles daily as directed for cough Stay well hydrated Use azelastine nasal spray for allergies and drying effect CKD (chronic kidney disease) stage 4, GFR 15-29 ml/min 07/13/2016 Overview (03/18/2019): GFR 74-24-71-29-25-25. History of left nephrectomy-renal cancer Assessment & Plan (06/14/2024 6:24 AM MDT): Stable Struggles with weight loss. Nephrology recommends considering injection weight loss medication. Would recommend Tirzepatide Assessment & Plan (10/09/2023 11:57 AM MDT): Cr in ED 2.4 GFR 19. Has been this high in the past. Curious was that her lipase was >4000 and she had minimal epigastric pain Took gaviscon x4 to alleviate epigastric pain Check lipase Check CMP Feeling well now. Monitor for recurrence of abdominal pain. Suggest pepcid if feels like acid/reflux Assessment & Plan (09/24/2023 2:44 PM MDT): Increases bleeding risk Assessment & Plan (06/25/2023 3:23 PM MDT): Management per Dr Haynes Assessment & Plan (01/17/2021 9:18 AM MST): Cr 1.86 GFR 26 Assessment & Plan (01/12/2020 7:30 PM MST): Cr at hospital d/c 2.5 Check again in 1 month Assessment & Plan (06/23/2019 10:25 AM MDT): Last Cr at [facility] 2.0, Check labs in 2 weeks Assessment & Plan (05/10/2019 7:26 PM MDT): Chronic kidney disease with history of left nephrectomy due to renal cancer. Creatinine here ranging around 2.2. 04/2019 echocardiogram-normal LV function New onset atrial fibrillation in the setting of intra-abdominal infection and positive blood cultures with E. coli PLAN: 1. Avoid renal toxic substances 2. Dose cardiac medications as indicated Assessment & Plan (02/07/2018 1:53 PM MST): L nephrectomy for renal CA. GFR 37-24-30. Stable Plan: cont aggressive lipid managment Assessment & Plan (06/04/2017 8:08 AM MDT): GFR-24, was 37 before. Obesity 07/13/2016 Overview (02/07/2018): Hx of gastric band Assessment & Plan (09/24/2023 2:45 PM MDT): Increases perioperative risk. Assessment & Plan (04/27/2019 6:25 PM MST): Complicates all aspects of care Assessment & Plan (02/07/2018 1:52 PM MST): Hx of gastric band. 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 Assessment & Plan (02/07/2018 1:56 PM MST): Stable lipids . Plan: aggressive lipid management Assessment & Plan (06/04/2017 10:07 AM MDT): Needs exercise. E-4 gene. Hx of renal cell carcinoma 07/13/2016 Overview (11/17/2017): Left nephrectomy-1999 Assessment & Plan (05/10/2019 7:28 PM MDT): This is charted as a component of her kidney disease noting a history of nephrectomy Assessment & Plan (11/17/2017 8:16 PM MDT): Grade 3 to almost 4 chronic kidney disease Assessment & Plan (06/04/2017 9:55 AM MDT): Hx of Left Nephrectomy. Resolved Problems Problem Noted Date Diagnosed Date Resolved Date SALAZAR (dyspnea on exertion) 06/25/2023 Assessment & Plan (03/10/2024 1:53 PM MST): Work up with cardiology benign. Still feeling shortness of breath with exertion. Told has cold so coughing much worse. Check CT lung scan. Albuterol and tessalon for current viral cough. Follow up in 3 months for ongoing evaluation Assessment & Plan (06/25/2023 3:22 PM MDT): Unclear if dyspnea from exercise is deconditioning vs other pathology Congested on exam today, normal lung sounds Check CXR today Cardiology referral placed for other evaluation of possible anginal equivalent. Pre-op examination 01/17/2021 Assessment & Plan (01/30/2021 1:05 PM MST): The patient is medically optimized for surgery. Low estimated cardiac risk, EKG is negative for signs of ischemia and the patient is able to perform at least 4 METS of activity. No further cardiac work-up is needed prior to proceeding with surgery. EKG: normal EKG, normal sinus rhythm, unchanged from previous tracings. She does have a history of DVT after abdominal surgery as well as CVA. She will resume her Eliquis after surgery. No need to bridge anti-coagulation. Vision abnormalities 05/09/2020 025 Colostomy present 12/30/2019 03/03/2020 Acute deep vein thrombosis ( DVT) of calf muscle vein of left lower extremity 08/13/201912/26 Assessment & Plan (03/03/2020 11:37 AM MST): Noted in July. Check follow up ultrasound because review of chart shows this hasn't been repeated. Assessment & Plan (08/13/2019 2:53 PM MDT): Acute DVT noted on recent ultrasound through ED. Started on eliquis 2.5mg BID. Will continue current dosing. Pain improved with current treatment. Follow up PRN. Colostomy in place 06/23/2019 0 Assessment & Plan (12/17/2019 3:46 PM MDT): Scheduled for colostomy take down with Dr Small beginning of December Assessment & Plan (06/23/2019 10:26 AM MDT): S/p surgery May 06 0 for bowl perforation. Functioning well 8 mid-line abdominal sutures removed today Continue other management per surgery Sepsis due to Escherichia coli (e. coli) 05/10/2019 06/23/2019 Assessment & Plan (05/10/2019 7:54 PM MDT): Patient has E. coli isolated in her bloodstream post hemicolectomy and laparotomy that were required given severe peritonitis post lap band. Levophed is being weaned LVEF intact 05/13 Chronic kidney disease with baseline creatinine around 1.7-2.0 and around 2.2 as of 05/10/2019. White blood cell count negative Atrial fibrillation somewhat complicates the picture PLAN: 1. Collectively per admitting service/ICU Postoperative nausea 05/06/2019 020 Dysphasia 05/02/2019 06/23/2019 FHx: heart failure 08/04/2018 Overview (08/04/2018): [id number]-64 History of sleep apnea 08/21/201706/09 Assessment & Plan (09/24/2023 2:45 PM MDT): Increases perioperative risk. 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 Because of her BMI at 38.8, age 72 and being postmenopausal, she was asked to have a nighttime oximetry test. She is on HRT. Patient has history of sleep apnea and using CPAP. She then had a gastric bypass and lost much weight, was off CPAP probably for 9 years. She has a negative family history for sleep apnea. She only admits to taking occasional 20 minute afternoon nap. She may occasionally fall asleep to a boring movie if they have lounge type chairs. Agent is on HRT and thinks she sleeps well at night. We are treating her lipids aggressively as she has the E-4 gene. Patient had a kidney removed for renal cancer and has stage IV CKD. She is an ex smoker. The gastric procedure she had was a band procedure in 2008. Overall she has been very healthy. Impression: History of sleep apnea with CPAP use and then weight loss after gastric bypass Plan: We'll do a nighttime oximetry test. Will call patient results. Probably need to give her results to take back to CDOT.patient agrees with plan Spent 25 min, over 50% counseling. Preventative health care 01/30/2017 Overview (08/05/2018): 02-07-18 Assessment & Plan (06/25/2023 3:21 PM MDT): Medicare wellness visit completed today. Advanced care planning in place Cognitive screen negative See other plan Assessment & Plan (05/31/2022 12:45 PM MDT): Medicare wellness visit completed today Cognitive screen negative Advance care planning discussed and in place Will be getting labs in near future. Start PT for gait stability. Assessment & Plan (03/21/2021 5:[address] [facility]): 76-year-old female seen today for Medicare wellness visit. Overall doing well despite recent right ankle orthopedic surgery. No indication for preventative labs at this time Continue Eliquis for stroke prevention and paroxysmal A. Fib with known previous stroke Blood pressure well controlled Advanced directive in place Minimal use of narcotic pain medications related to recent surgery and no concerns for overuse or abuse Assessment & Plan (08/05/2018 7:07 AM MDT): Tetanus shot in 2 shot up-to-date. She had both pneumonia vaccines. Colon exam August 2017. DEXA scan July 2008. Last recorded mammogram December 2015 Assessment & Plan (02/07/2018 1:[address] [facility]): Shots all up to date. Colon 1 or 2 in past-did home hematest card 09-04-17=neg. FH-neg for DM and early CAD. GERD helped with bid PPI. Had gastric bypass. Lumbar spine fusion in near future. Elevated Ca recently and cont mild rise. PTH measured and high. Pt to ENDO for evaluation. Back surgery on hold. Also has much feet pain. Feet edema-PTH? Inactivity? Pt thinks Actos? Assessment & Plan (01/30/2017 10:[address] [facility]): Flu shot done. Has all other shots. Colon exam 1 or 2 in past. Can set up when ready. GB-nnbxkx-MD cancer of some type-jejunum area-type? FH-neg for DM and early CAD, Meds all refillable. Tessalon refilled for cough. 130/70's at home. Glucose intolerance (impaire d glucose tolerance) 07/13/2016 06/09/2024 Assessment & Plan (05/10/2019 7:43 PM MDT): Risk factor for CVA noting new onset atrial fibrillation though 04/2019 A1c only 5.5 Outpatient follow up per primary care physician Assessment & Plan (02/07/2018 1:56 PM MST): Stable lipids . Plan: aggressive lipid management Menopausal syndrome on hormo ne replacement therapy 07/13/2016 06/09/2024 Assessment & Plan (05/01/2018 7:19 AM MST): Refilled hormone replacement 2 medications today. Assessment & Plan (02/07/2018 1:57 PM MST): On HRT. Asymptomatic Plan: cont on HRT GERD (gastroesophageal reflux disease) 07/13/2016 06/09/2024 Overview (02/03/2019): History of gastric band procedure. Assessment & Plan (05/10/2019 7:29 PM MDT): I see no history of GI bleed. Hemoglobin is going up postoperatively New atrial fibrillation 05/13 PLAN: 1. She qualifies for atrial fibrillation for CVA risk reduction. Proton pump inhibitor is reasonable noting additionally that she was on such. Assessment & Plan (05/02/2019 2:05 PM MDT): Persistent symptomatology despite medical management and total band unfilled. Options for management of band removal or conservative measures were discussed in detail. Risks, benefits, complications, and alternatives to operative removal of the LAP-BAND were reviewed. Patient would like to proceed with band removal given the failure of medical management for several years and the associated symptomatology. We will schedule for operative intervention at next available time. Assessment & Plan (03/18/2019 6:54 AM MST): Patient with history of gastric band procedure. Having much more reflux symptoms. She is taking Prilosec cautiously due to her CKD. Her understanding is sometime the LAP-BAND have to be removed. She will be referred to Dr. Gay-gastric bypass surgeon. Assessment & Plan (02/07/2018 1:51 PM MST): Hx of Gastric band. Much GERD. Stable on bid PPI Plan: cont PPI at current dosage. Assessment & Plan (11/17/2017 8:17 PM MDT): History of gastric band procedure. Possibly causing GERD. Assessment & Plan (06/04/2017 10:05 AM MDT): Prilosec 1 to 2 per day. If not take 2nd, wake with Reflux. Can feel up to throat then. Need to stop all caffeine. Had lap band-deflated now. Lap Band 2008, Worried about taking Prilosec with CKD. Is having sig reflux so needs med. Talked about all the complications if not using Prilosec. Gave a handout on things that open valve and allow reflux. Will stay on Prilosec 2 per day for now. Use antacids prn. Will get to ortho for hip hardware evaluation-bilateral replacements. Probably will need more PT to strengthen legs. Needs more exercise for lipid treatment. NMR lipid test was good but IR-62. BP is doing well on meds. If hips are all ok and still having reflux issues, call for GI referral for probable EGD for evaluation and if gastric band is causing complications-it is deflated now. Reviewed all Dx and meds. Pt had many concerns today. Referral to Ortho-Dr Bliss for now- just had a hip revision from him and is doing great. I'm not hearing anything to think she needs more surgery. Is more frustrated with less ability to get around and less balance. Spent 40 min,over 50% counseling. Assessment & Plan (01/30/2017 10:08 AM MST): Prilosec 1 or 2 per day Encounters Date Type Department Care Team Description 08/11/2024 Telephone [facility] [address] [place] [address] Nidia Kim, DO Care Management (CPAP) 08/06/2024 11:30 AM MDT Treatment [facility] [address] [place] [address] Gale Gar, PT Bilateral leg weakness (Primary Dx); Decreased activity tolerance; Bilateral hip pain; Gait disturbance; Balance disorder 08/06/2024 Travel 08/03/2024 11:30 AM MDT Treatment [facility] [address] [place] [address] Gale Gar, PT Gait disturbance (Primary Dx); Bilateral leg weakness; Decreased activity tolerance; Bilateral hip pain; Balance disorder 08/02/2024 Travel 07/30/2024 11:30 AM MDT Treatment [facility] [address] [place] [address] Gale Gar, PT Gait disturbance (Primary Dx); Bilateral leg weakness; Decreased activity tolerance; Bilateral hip pain; Balance disorder 07/30/2024 Orders Only [facility] [address] [place] [address] Tanja Renteria MA MINNA (obstructive sleep apnea) 07/29/2024 Telephone [facility] [place] [address] [place] [address] Tanja Renteria MA Med Refill 07/27/2024 11:30 AM MDT [facility] [place] [address] Gale Gar, PT Gait disturbance (Primary Dx); Bilateral leg weakness; Decreased activity tolerance; Bilateral hip pain 07/27/2024 Travel 07/26/2024 Travel 07/23/2024 10:00 AM MDT Treatment [facility] [place] [address] Gale Gar, PT Bilateral leg weakness (Primary Dx); Decreased activity tolerance 07/22/2024 Travel 07/20/2024 10:00 AM MDT Treatment [facility] [place] [address] Gale Gar, PT Balance disorder (Primary Dx); Gait disturbance; Bilateral leg weakness; Decreased activity tolerance 07/20/2024 Travel 07/16/2024 11:30 AM MDT Treatment [facility] [address] [place] [place] [address] Gale Gar, PT Balance disorder (Primary Dx); Gait disturbance; Bilateral leg weakness; Decreased activity tolerance 07/13/2024 [facility] [address] [place] [address] Gale Gar, PT 07/12/2024 Travel 07/07/2024 [facility] [address] [place] [address] Nidia Kim, Prior Authorization (MOUNJARO) 07/06/2024 4:00 PM MDT [facility] [address] [place] [place] [address] Zoya Mckinnon, PT Balance disorder (Primary Dx); Gait disturbance; Bilateral leg weakness; Decreased activity tolerance 07/06/2024 Travel 07/05/2024 [facility] [place] [address] [place] [address] Nidia Kim, Prior Authorization (MOUNJARO) 07/02/2024 Travel 07/01/2024 [facility] [address] [place] [address] Nidia Kim DO Prior Authorization (MOUNJARO) 07/01/2024 [facility] [address] [place] [address] Nidia Kim DO Care Management ([facility]) 06/30/2024 [facility] [place] [address] [place] [address] Nidia Kim, Clinical Concern 06/24/2024 1:00 PM MDT Evaluation [facility] [address] [place] [address] Nidia Kim DO Bailey, Christine A, PT Gait disturbance (Primary Dx); Balance disorder; Bilateral leg weakness; Decreased activity tolerance 06/24/2024 Travel 06/23/2024 9:40 AM MDT Office Visit [facility] [address] [place] [address] Nidia Kim DO MINNA (obstructive sleep apnea) (Primary Dx) 06/23/2024 Telephone [facility] [address] [place] [address] Nidia Kim DO Prior Authorization (CAMMY) 06/23/2024 Travel 06/16/2024 7:24 PM MDT - 06/16/2024 11:59 PM MDT Hospital Encounter [facility] [address] [place] [address] Nidia Kim DO Discharge Disposition: *Home or Self Care 06/15/2024 Travel 06/09/2024 12:40 PM MDT Office Visit [place] [address] [place] [address] Nidia Kim DO DOE (dyspnea on exertion) (Primary Dx); MINNA (obstructive sleep apnea); Balance disorder; CKD (chronic kidney disease) stage 4, GFR 15-29 ml/min ([facility]) 06/09/2024 Travel 06/08/2024 Orders Only [facility] [address] [place] [address] ProviderArturo MD 06/08/2024 Travel 05/28/2024 10:49 AM MDT Anesthesia Event [facility] [address] [facility] [place] [address] Guido Campbell MD 05/28/2024 9:50 AM MDT - 05/28/2024 12:30 PM MDT Hospital Encounter [facility] [address] [place] [address] Rosaline Whalen, Salinas Garrison MD Presence of Watchman left atrial appendage closure device Discharge Disposition: *Home or Self Care 05/28/2024 Travel 05/25/2024 1:30 PM MDT Office Visit [facility] [place] [address] [facility] [address] [place] [address] Rosaline Whalen NP Presence of Watchman left atrial appendage closure device (Primary Dx) 05/25/2024 Travel 05/24/2024 Prep for Case [facility] [address] [facility] [address] [place] [address] Rosaline Whalen NP Paroxysmal atrial fibrillation (CMS/HCC) (Primary Dx) 05/21/2024 Travel from Last 3 Months Immunizations Name Administration Dates Next Due Covid-19 (Moderna) 04/29/2020,04/06/2020 Covid-19 (PFIZER) bivalent ( ages 6mos-4yrs) 04/29/2020,04/06/2020 Covid-19 (Pfizer) (purple cap) 12/11/2020 DTaP 02/03/2020 Influenza (IM) 11/07/2015, 5,09/24/2013,12/30 Influenza (IM) Quadrivalent 11/24/2020 Influenza (IM) Trivalent 11/24/2020 Influenza (IM), Trivalent, P F Syringe/SDV 11/23/2008,01/11/2008 Influenza Quadrivalent, Adju vanted 65+ (FLUAD) 11/24/2020 Influenza Trivalent, Adjuvan russel 65+ (FLUAD) 11/27/2023 Influenza, High Dose 11/13/2022,12/25/19 22,11/24/2020,12/16,12/17/2019,11/26/2018,11/26/2018 ,11/17/2017,10/10/2016,10/10/2016,03/2016,11/11/2014,11/11/2014 Influenza, Unspecified 11/24/2020,11/12/2017 PPD Test 02/25/2021,02/25/2021 Pneumococcal Conjugate 13-Valent 11/11/2014,09/0 02/2014 Pneumococcal Polysaccharide 23-Valent 04/09/2005 RSV vaccine, recombinant (AREXVY) 11/13/2022 Td 04/08/2008 Tdap 02/03/2020 Zoster (ZOSTAVAX) 11/24/2020 Zoster recombinant (SHINGRIX) 05/05/2021, 021 Family History Medical History Relation Name Comments Prostate cancer Brother Julio Divine Thyroid cancer Brother Julio Yen Diabetes Daughter Annmarie Stroke Daughter Annmarie Cancer Father Mart Reynaine jejunum-small i ntestine Hypertension Father Mart Yen Stroke Father Mart Yen Heart disease Mother Alda Yen onset CHF-li rafael to 95 Hypertension Mother Alda Yen Thyroid disease Mother Alda Reynaine No Known Problems Amol Miramontes Relation Name Status Comments Brother Julio Divine Alive Daughter Annmarie Alive Father Mart Yen Maternal Grandfather Maternal Grandmother Mother Alda Reynaine Paternal Grandfather Paternal Grandmother Son Kulwinder Alive Social History Tobacco Use Types Packs/Day Years Used Date Smoking Tobacco: Former Cigarettes 2 20 0 02/24/1965 - 02/24/1985 Smokeless Tobacco: Never Tobacco Cessation:Counseling Given: Not Answered Alcohol Use Standard Drinks/Week Comments Yes 2 [...] Sign Reading Time Taken Comments Blood Pressure 138/50 06/23/2024 9:10 AM MDT Pulse 88 06/23/2024 9:10 AM MDT Temperature 36.6 C (97.9 F) 06/23/2024 9:10 AM MDT Respiratory Rate 18 06/23/2024 9:10 AM MDT Oxygen Saturation 94% 06/23/2024 9:10 AM MDT Inhaled Oxygen Concentration - - Weight 103 kg (227 lb 3.2 oz) 06/23/2024 9:10 AM MDT Height 160 cm (5' 3 ) 06/23/2024 9:10 AM MDT Body Mass Index 40.25 06/23/2024 9:10 AM MDT Plan of Treatment Upcoming Encounters Date Type Department Care Team (Late st Contact Info) Description 09/24/2024 12:45 PM MDT Office Visit [place] [facility] [address] [place] [address] Jos Gagnon MD [address] [facility] [address] [place], [place] [address] 09/27/2024 2:00 PM MDT Office Visit [facility] [address] [place] [address] Nidia Kim DO [address] [place] [address] 10/12/2024 3:00 PM MDT Office Visit [facility] [place] [facility] [place] [address] [facility] [address] [place] [address] Rosaline Whalen NP [address] [facility] [address] [place] [address] 04/08/2025 9:[address] [facility] Appointment [facility] [address] [place], [place] [address] Rosaline Whalen NP [address] [place] [address] 04/14/2025 11:[address] [facility] Office Visit [facility] [address] [place] [address] Rosaline Whalen NP [address] [facility] [address] [place] [address] 04/13/2026 9:[address] [facility] Education [facility] [address] [facility] [address] [place] [address] Health Maintenance Due Date Last Done Comments Hepatitis C Screening 1945 COVID-19 Vaccine (2023-2 5 season) 2023 12/24/2021, 12/11/2020, 04/29/2020, Additional history exists Medicare Annual Wellness Visit 06/24/2024 0 06/25/2023, 05/29/2022, 03/21/2021, Additional history exists Td/Tdap 02/02/2030 02/03/2020, 04/08/2008 DXA scan Completed 08/01/2008 Mammogram Discontinued 01/10/2016 FOBT Discontinued 08/24/2017 Colonoscopy Discontinued 09/30/2019, 07/25/2004 Colorectal Cancer Screening Discontinued Shingles Vaccine Completed 05/05/2021, 02/2020, 11/24/2020 Influenza Vaccine Completed 11/27/2023, , 12/24/2021, Additional history exists CT Colonography Discontinued FIT-DNA Discontinued FIT Discontinued Sigmoidoscopy Discontinued Medical Devices Implanted Type Area Lime Boiler Device Identifier Shelf Expiration Date Model / Serial / Lot Implant Implant Bilateral: Hip Description:lens implants bi lateral, jerry from a nephrectomy, lap band Implant Implant Bilateral: Hip Implant Implant Right: Dental Surgicel Flexible Sheer Weave 8x4in Hemostat Absorbable Sterile Disposable - [id number] Implanted:Qty: 1 on 10/19/2018 by Ildefonso Staley III, MD at [facility] Implant N/A: Neck J & J:ETH[employer] INC:WOUND MGMT 02/23/20231951 / / [id number] Dome Talar Inbone 2 Ankle Sulcus - [id number] Implanted:Qty: 1 on 02/08/2021 by Adolfo Alanis DO at [facility] Implant Right: Ankle [place] [employer]:Merlin TECH 03/13/2028 [id number] / / [id number] Tibial Insert Ankle 2+ 8mm Poly Infinity - [id number] Implanted:Qty: 1 on 02/08/2021 by Adolfo Alanis DO at [facility] Implant Right: Ankle [facility]:Merlin TECH 09/03/2026 [id number] / / [id number] Suture [place] Iconix Force Fiber 2 Needle Intellibraid Technology 1.4mm Sterile Latex-Free - [id number] Implanted:Qty: 2 on 02/08/2021 by Adolfo Alanis DO at [facility] Implant Right: Ankle ALLY:STRYKE R ENDOSCOPY 10/12/2022 [id number] / / [id number] Dome Talar Inbone 2 Ankle Sulcus - [id number] Implanted:Qty: 1 on 02/08/2021 by Adolfo Alanis DO at [facility] Implant [facility]:Merlin TECH [id number] / / Tibial Tray Adaptis 3 Infinity Knee - [id number] Implanted:Qty: 1 on 02/08/2021 by Adolfo Alanis DO at [facility] Implant [facility]:Fitly [id number] / / [id number] Bone Screw 2.7mm 2.1mm 10mm Self Tap Lock Stardrive Thread Head Stainless Steel T8 Ns - [id number] Implanted:Qty: 4 on 02/14/2021 by Adolfo Alanis DO at [facility] Implant Right: Ankle J & J:DEPUY SYNTHES 202.210 / / Bone Screw 2.7mm 2.1mm 24mm Self Tap Lock Stardrive Thread Head Stainless Steel T8 Ns - [id number] Implanted:Qty: 2 on 02/14/2021 by Adolfo Alanis DO at [facility] Implant Right: Ankle J & J:DEPUY SYNTHES 202.224 / / Bone Screw 2.7mm 2.1mm 26mm Self Tap Lock Stardrive Thread Head Stainless Steel T8 Ns - [id number] Implanted:Qty: 1 on 02/14/2021 by Adolfo Alanis DO at [facility] Implant Right: Ankle J & J:DEPUY SYNTHES 202.226 / / Bone Screw 2.7mm 2.1mm 30mm Self Tap Lock Stardrive Thread Head Stainless Steel T8 Ns - [id number] Implanted:Qty: 1 on 02/14/2021 by Adolfo Alanis DO at [facility] Implant Right: Ankle J & J:DEPUY SYNTHES 202.230 / / Bone Screw 2.7mm 5mm 38mm Cortex Self Tap Stardrive Stainless Steel T8 Ns Pediatric - [id number] Implanted:Qty: 1 on 02/14/2021 by Adolfo Alanis DO at [facility] Implant Right: Ankle J & J:DEPUY SYNTHES 202.898 / / Bone Plate 66mm 7 Hole Shaft Low Profile Cut To Length Condylar Stainless Steel Lcp Ns 2.7 - [id number] Implanted:Qty: 1 on 02/14/2021 by Adolfo Alanis DO at [facility] Implant Right: Ankle J & J:DEPUY SYNTHES 249.684 / / Glenoid Baseplate 25mm Tornier Aequalis Perform +3mm Shoulder Lateralize Augment Reverse - [id number] - [id number] Implanted:Qty: 1 on 03/27/2022 at [facility] Implant [facility]:Merlin TECH [id number] 01/25/2027 [id number] / [id number] / Bone Screw 7mm Reverse Aequalis Perform Sterile Latex-Free - [id number] - [id number] Implanted:Qty: 1 on 03/27/2022 at [facility] Implant TORNIER SA:TORNIER INC [id number] 09/12/2026 [id number] / [id number] / Sphere Glenoid 36mm Aequalis Perform Tornier Standard Shoulder Reverse - [id number] - [id number] Implanted:Qty: 1 on 03/27/2022 at [facility] Implant [place] PLATA Codesion:Fitly [id number] 02/07/2027 [id number] / [id number] / Screw Baseplate 14mm 5mm Aequalis Perform Reversed Glenoid Peripheral Ns - [id number] Implanted:Qty: 2 on 03/27/2022 at [facility] Implant JACOME Codesion:Fitly [id number] / / Screw Baseplate 38mm 5mm Aequalis Perform Glenoid Reverse Peripheral Ns - [id number] Implanted:Qty: 1 on 03/27/2022 at [facility] Implant LA PLATA Codesion:Fitly [id number] / / Humeral Stem Perform 2+ Long Shoulder Sterile Latex-Free - [id number] - [id number] Implanted:Qty: 1 on 03/27/2022 at [facility] Implant TORNIER SA:TORNIER INC [id number] 01/16/2027 [id number] / [id number] / Bone Cement Palacos R 40gm High Viscosity Green - [id number] Implanted:Qty: 2 on 03/27/2022 by Rigoberto Thorne MD at [facility] Implant Right: Shoulder [facility] [id number] 09/23/2026 [id number] / / [id number] Insert Humeral 36mm Perform Thk+0mm .5 Shoulder Sterile Latex-Free - [id number] - [id number] Implanted:Qty: 1 on 03/27/2022 by Rigoberto Thorne MD at [facility] Implant TORNIER SA:TORNIER INC 09/06/2024 [id number] / [id number] / Watchman Flx 20mm Cardiovascular Occluder Delivery System Sterile Latex-Free Left Atrial - [id number] Implanted:Qty: 1 on 04/13/2024 by Meli Cole MD at [facility] Implant [employer] 11/16/2026 [id number] / / [id number] Lens Lens Bilateral: Eye Staple Staple Left: Abdomen Description:jerry from lef t kidney removal Explanted Type Area Lime Boiler Device Identifier Shelf Expiration Date Model / Serial / Lot Bone Screw 2.7mm 36mm Cortex Self Tap Stardrive Stainless Steel T8 Ns Pediatric Modular - [id number] Explanted:Qty: 1 on 02/14/2021 by Adolfo Alanis DO at [facility] Implant Right: Ankle J & J:DEPUY SYNTHES 202.896 / / Alignment Pin 200mm 2.5mm Aequalis Shoulder Glenoid Sterile Disposable - [id number] - [id number] Explanted:Qty: 1 on 03/27/2022 at [facility] Implant TORNIER SA:TORNIER INC [id number] 06/05/2026 [id number] / [id number] / Procedures Procedure Name Priority Date/Time Associated Diagnosis Comments SLEEP LAB/STUDY ADULT Routine 06/16/2024 SALAZAR (dyspnea on exertion) MINNA (obstructive sleep apnea) EXTGENCONS Routine 06/08/2024 2:00 PM MDT YOLANDA COMPLETE WO CONTRAST W COLOR & LTD DOPPLER Routine 05/28/2024 11:07 AM MDT Paroxysmal atrial fibrillation (CMS/HCC) COLONOSCOPY 09/30/2019 3:12 PM MDT FECAL IMMUNO TEST OCCULT BLOOD Routine 08/24/2017 12:00 AM MDT MAMMOGRAPHY Routine 01/10/2016 DEXA SCAN Routine 08/01/2008 from Last 3 Months or Most Recently Relevant to Health Maintenance Results * Sleep Study Adult: (06/16/2024) 06/16/2024 Nidia Kim DO SLEEP CENTER ORDERABLES Fin al Result SANTIAGO * EXT Generic Consult (06/08/2024 2:00 PM MDT) Historical Provider MD OUTPATIENT REFERRAL ORDER ANDREI Final Result * YOLANDA COMPLETE WO CONTRAST W COLOR & LTD DOPPLER (05/28/2024 11:07 AM MDT) Anatomical Region Laterality Modality N/A Other, Echocardi ography Narrative 05/28/2024 11:17 AM MDT Indication: s/p Watchman Device assessment having an implant date on 04/13/2024. Procedure: The patient's YOLANDA procedure was performed in the [facility] under deep conscious sedation utilizing Propofol with Dr. Guido Campbell MD. The YOLANDA probe was passed without incident and the results were reviewed with the patient in the [facility] following waking from sedation. There were no immediate complications from the procedure. Echocardiographic findings: Left ventricle: Left ventricular systolic function was normal and was estimated at >55% without focal wall motion abnormalities. There was evidence of increased proximal septal thickening. Right ventricle: The right ventricle was normal in size, right ventricular systolic function was normal. Aortic valve: The aortic valve is trileaflet with sclerotic features. There was evidence of mild aortic regurgitation. Mitral valve: The mitral valve leaflets were mildly thickened with mild mitral regurgitation. Tricuspid valve: The tricuspid valve leaflets were thin and pliable. There was mild tricuspid regurgitation. Pulmonic valve: The pulmonic valve was not well seen. Atria: The right atrium and left atrium appeared moderately dilated (visually). The left atrial appendage had a well-seated Watchman device in place. Multiple views were obtained (0, 45, 90 and 135 degrees) with good visualization and there was no evidence of Doppler color flow around the device in any of the views. 3D imaging was utilized to assess the Watchman device in more detail. There was no evidence of thrombus noted within the right atrium or left atrium. There was no evidenced of a small ASD with color flow Doppler the primarily demonstrated left to right intra-atrial shunting with a small amount to right to left shunting. The study was recorded in a NSR with the left upper pulmonary vein having a normal Doppler flow pattern. Great vessels: The ascending and descending aorta where normal in size with mild atherosclerotic disease. Pericardium: The pericardial thickness is normal, there is no pericardial effusion. Conclusions: 1. Normal LVEF of >55% without wall motion abnormalities. 2. Normal RV size and systolic function. 3. Moderately dilated atria. 4. Mild mitral, aortic and tricuspid regurgitation. 5. Well-seated Watchman device without evidence of Doppler color flow around the device. 6. Small iatrogenic ASD with primarily [id number] shunting noted on color-flow Doppler however there was a small amount of right to left shunting also seen. 7. Study recorded in a NSR. 8. No complications from the procedure. us Rosaline Whalen PACKAGE DELIVERY ROOM SERVICE RUNNER CV ECHO ORDERABLES Final Re sult * COLONOSCOPY (09/30/2019 3:12 PM MDT) 09/30/2019 3:12 PM MDT Narrative Transcriptions Linda Lawler, DO - 09/30/2019 3:12 PM MDT [facility] Special Procedures - [facility] Gastroenterology Patient Name: Lizy Patricia Procedure Date: 09/30/2019 3:12 PM Date of : 1945 Admit Type: Outpatient Age: 74 Room: [place] [address] Gender: Female Attending MD: Linda Lawler, Procedure: Colonoscopy Indications: Screening for colorectal malignant neoplasm - previous history of colostomy Providers: Linda Lawler (Doctor) , NONE NONE, (Assisting Doctor) Referring MD: Adolfo Goins (Referring MD) Medicines: Sedation Administered by an AnesthesiaProfessional Complications: No immediate complications. Impressions: - Preparation of the colon was poor. - Stool in the transverse colon, at the hepatic flexure, in the ascending colon and in the cecum. - Mucous plugs in the rectum. - Internal hemorrhoids. - No specimens collected. Plan: - Patient has a contact number available for emergencies. The signs and symptoms of potential delayed complications were discussed with the patient. Return to normal activities tomorrow. Written discharge instructions were provided to the patient. - Advance diet as tolerated. - Continue present medications. - Resume Eliquis (apixaban) at prior dose today. - Repeat colonoscopy in 3-6 months because the bowel preparation was suboptimal; or sooner if problems/symptoms or change in family history regarding colorectal cancer. - Return to referring physician. - Discharge patient to home (ambulatory). Findings: The perianal and digital rectal examinations were normal. Pertinent negatives include normal sphincter tone. Digital examination of the ostomy site was normal. Extensive amounts of stool was found in the transverse colon, at the hepatic flexure, in the ascending colon and in the cecum, interfering with visualization, and identification of structures was very difficult due to poor visualization. Two large mucous plugs were found in the rectum inhibiting the ability to traverse proximal to the rectum. Internal hemorrhoids were found during endoscopy. The hemorrhoids were Grade I (internal hemorrhoids that do not prolapse). Procedure: Pre-Anesthesia Assessment: - Prior to the procedure, a History and Physical was performed, and patient medications and allergies were reviewed. The patient's tolerance of previous anesthesia was also reviewed. The risks and benefits of the procedure and the sedation options and risks were discussed with the patient. All questions were answered, and informed consent was obtained. Prior Anticoagulants: The patient has taken Eliquis (apixaban). ASA Grade Assessment: III - A patient with severe systemic disease. After reviewing the risks and benefits, the patient was deemed in satisfactory condition to undergo the procedure. After obtaining informed consent, the colonoscope was passed under direct vision. Throughout the procedure, the patient's blood pressure, pulse, and oxygen saturations were monitored continuously. The Colonoscope was introduced through the transverse colostomy and advanced to the cecum, identified by appendiceal orifice and ileocecal valve. The colonoscopy was performed without difficulty. The patient tolerated the procedure well. The quality of the bowel preparation was poor. Erasmo Lawler, Súal.O. Linda Lawler, 09/30/2019 3:53:47 PM This report has been signed electronically.Linda Lawler Number of Addenda: 0 Note Initiated On: 09/30/2019 3:12 PM Procedure Code(s): --- Professional --- 45562, Colonoscopy through stoma; diagnostic, including collection of specimen(s) by brushing or washing, when performed (separate procedure) Diagnosis Code(s): --- Professional --- Z12.11, Encounter for screening for malignant neoplasm of colon K64.0, First degree hemorrhoids T18.5XXA, Foreign body in anus and rectum, initial encounter CPT copyright 2019 [employer]. All rights reserved. The codes documented in this report are preliminary and upon book solicitor review may be revised to meet current compliance requirements. Requesting Provider: us Linda Lawler DO GI/ENDOSCOPY NOTE PRO CEDURES Final Result * Fecal Immuno Test Occult Blood (08/24/2017 12:00 AM MDT) Occult Blood, Fecal, Ia Negative Negative [facility] 1 08/24/2017 09/02/2017 Narrative [facility] - 09/04/2017 11:14 AM MDT Performed at: [address] [id number] Geospatial Extractor Analysis: Jose Villalpando MD, Phone: [phone] us Provider Interface LAB BODY FLUIDS AND STOOLS OR DERABLES Final Result [facility] [address], [address] [address] [facility] 1 * MAMMOGRAPHY (01/10/2016) Mammogram Historical Historical Provider HEALTH MAINTENANCE Final Result * DEXA SCAN (08/01/2008) Dexa Scan Historical Anatomical Region Laterality Modality Other Historical Provider MD HEALTH MAINTENANCE Final Result from Last 3 Months or Most Recently Relevant to Health Maintenance Insurance [employer] MEDICARE PPO HMO [employer]ARE [employer] MEDICARE PPO HMO Advance Directives Documents on File Type Date Recorded 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 Power of Mammography Tech * Full Code (Latest Code Status on File) Date Activated Date Inactivated Comments 05/28/2024 11:16 AM 05/28/2024 4:16 PM * Full Code Date Activated Date Inactivated Comments 04/13/2024 2:37 PM 04/13/2024 8:49 PM * Full Code Date Activated Date Inactivated Comments 04/13/2024 12:01 PM 04/13/2024 2:37 PM * DNR Date Activated Date Inactivated Comments 02/15/2021 1:05 AM 02/15/2021 7:17 PM * Full Code Date Activated Date Inactivated Comments 12/30/2019 11:54 AM 01/04/2020 3:10 PM Care Teams Flavor Tank Tender Relationship Specialty Start Date End Date Nidia Kim DO [address] [place] [phone] PCP - General Sports Medicine 09/21/23
--- OUTSIDE RECORDS SUMMARY | 2024-08-16 07:56 | XMS_ITS | Encounter Summary ---
Author Organization [employer] Address [address] [place] [address] Care Team Providers Care Equipment Specialist Name Role Phone Nidia Kim DO Primary Care Provider [phone] Encounter Details Date Type Department Care Team (Late st Contact Info) Description 06/19/2019 Transcribe Orders Xylitol [place] [address] [facility] [place] [address] Janice Roman MD [address] [place] [address] Septicemia due to Escherichia coli (E. coli)(038.42) ([facility]) (Primary Dx) Social History Tobacco Use Types Packs/Day Years Used Date Smoking Tobacco: Former Cigarettes 2 20 0 02/24/1965 - 1985 Smokeless Tobacco: Never Alcohol Use Standard Drinks/Week Comments Yes 2 (1 standard drink = 0.6 oz pur e alcohol) Occasional AUDIT-C Answer Date Recorded Frequency of Alcohol Consumption Monthly or less 01/22/2018 Average Number of Drinks 1 or 2 018 Frequency of Binge Drinking Never 12/26 PHQ-2 Answer Date Recorded PHQ-2 Score 5 06/22/2019 Comments No Sex and Gender Information Value Date Recorded Sex Assigned at Not on file Legal Sex Female 3:08 PM MDT Gender Identity Not on file Sexual Orientation Not on file COVID-19 Exposure Response Date Recorded In the last month, have you been in contact with someone who was confirmed or suspected to have Coronavirus / COVID-19? No / Unsure 06/19/2019 8:37 AM MDT documented as of this encounter Plan of Treatment Upcoming Encounters Date Type Department Care Team (Late st Contact Info) Description 09/24/2024 12:45 PM MDT Office Visit [place] [facility] [place] [facility] [address] [place] [phone] Jos Gagnon MD [address] [facility] [address] [place] [address] 09/27/2024 2:00 PM MDT [facility] [address] [place] [phone] Nidia Kim DO [address] [place] [address] 10/12/2024 3:00 PM MDT Office Visit [facility] [place] [address] [facility] [address] [place] [address] Rosaline Whalen NP [address] [facility] [address] [place] [phone] 04/08/2025 9:00 AM MST Appointment [facility] Vascular Cath [facility] Neuro [facility] [address] [place] [address] Rosaline Whalen NP [address] [facility] [address] [place] [address] 04/14/2025 11:00 AM MST Office Visit [facility] [place] [address] [facility] [address] [place] [address] Rosaline Whalen NP [address] [facility] [address] [place] [address] 04/13/2026 9:30 AM MST Education [facility] [place] [address] [facility] [address] [place] [address] documented as of this encounter Visit Diagnoses Diagnosis Septicemia due to Escherichia coli (E. coli)(038.42) ([facility])- Primary Septicemia due to Escherichia coli (E. coli) documented in this encounter Additional Health Concerns Infection Onset Date Last Indicated Resolved Time COVID-19 Pending 09/27/2019 09/27/2019 09/28/2019 12:16 PM MDT COVID-19 Pending 12/27/2019 12/27/2019 12/28/2019 10:25 AM MST documented as of this encounter Care Teams Equipment Specialist Relationship Specialty Start Date End Date Nidia Kim DO [address] [place] [address] PCP - General Sports Medicine 09/21/23 documented as of this encounter
--- OUTSIDE RECORDS SUMMARY | 2024-08-16 07:56 | XMS_ITS | Encounter Summary ---
Author Organization [facility] Address [address] [place] [address] Care Team Providers Care Chief Security Officer Name Role Phone Nidia Kim Primary Care Provider [phone] Encounter Details Date Type Department Care Team (Latest Contact Info) Description 08/02/2024 Travel Social History Tobacco Use Types Packs/Day Years [...] on file documented as of this encounter Plan of Treatment Upcoming Encounters Date Type Department Care Team (Late st Contact Info) Description 09/24/2024 12:45 PM MDT Office Visit [place] [facility] [place] [facility] [place] [address] [place] [address] Jos Gagnon MD [address] [place] [address] 09/27/2024 2:00 PM MDT Office Visit [facility] [place] [place] Primary [facility] [address] [place] [phone] Nidia Kim DO [address] [place] [address] 10/12/2024 3:00 PM MDT Office Visit [facility] [place] [place] [address] [facility] [address] [place] [address] Rosaline Whalen NP [address] [facility] [address] [place] [address] 04/08/2025 9:00 AM [facility] Appointment [facility] Vascular Cath Neuro Center [address] [place], [place] [address] Rosaline Whalen NP [address] [facility] [address] [place] [address] 04/14/2025 11:00 AM [facility] Office Visit [facility] [place] [place] [facility] [place] [address] [facility] [address] [place] [address] Rosaline Whalen NP [address] [facility] [address] [place] [address] 04/13/2026 9:30 AM [facility] Education [facility] [place] [place] [facility] [place] [address] [facility] [address] [place] [address] documented as of this encounter Visit Diagnoses Not on filedocumented in this encounter Care Teams Chief Security Officer Relationship Specialty Start Date End Date Nidia Kim DO [address] [place] [phone] PCP - General Sports Medicine 09/21/23 documented as of this encounter
--- OUTSIDE RECORDS SUMMARY | 2024-08-16 07:56 | XMS_ITS | Patient Health Record ---
Author Organization [facility] Billing Info Address [address] [facility] [place] [address] Care Team Providers Care Web Weaver Name Role Phone DUYEN YEUNG MD Primary Care Provider Unavailabl e Reason For Referral No Information Medications Medication SIG (Take, Route, Frequency, Duration) Notes Start Date End Date Status Meloxicam 15 MG 1 tablet Orally Once a day for 30 day(s) Active Lisinopril 20 MG 1 tablet Orally Once a day for 30 day(s) Active Omeprazole 40 MG 1 capsule Orally Onc e a day for 30 day(s) Active Fish Oil [place]-3 1000 MG 1 capsule Orall y Once a day for 30 day(s) Active Vitamin D3 Complete - as directed Orally Active Tylenol Arthritis Pain 1300 Orally PRN Active MedroxyPROGESTERone Acetate 2.5 MG 2 tablets with food Orally Once a day for 5 day(s) Active Estradiol 0.5 MG 1 tablet Orally for 30 day(s) Active Immunizations Vaccine Route Administration Date Status Comme nts FLU (Past vaccine of unknown type) Unknown 11/12/2017 A dministered Social History Tobacco Use: Social History Observation Description Date Details (start date - stop date) Former Smoker NA - NA Tobacco Status: Question Answer Notes Patient is a former smoker Problems Problem Type SNOMED Code ICD Code Onset Dates Problem Status W/U Status Risk Notes Problem [id number] Gastro-esophagea l reflux disease without esophagitis (K21.9) Active confirmed Problem 4873019 Apnea, not elsew here classified (R06.81) Active confirmed Problem 559165335 Multinodular goi ter (E04.2) Active confirmed Problem 80387318 Hyperparathyroid ism (E21.3) Active confirmed Problem 998121563 Chronic kidney disease, stage IV (severe) (N18.4) Active confirmed Problem 897466846 Balance disorder (R26.89) Active confirmed Problem 509531001 H/O renal cell c ancer (Z85.528) Active confirmed Problem 99148562 Osteoporosis, unspecified osteoporosis type, unspecified pathological fracture presence (M81.0) Active confirmed Problem 753662118 Obesity without serious comorbidity, unspecified classification, unspecified obesity type (E66.9) Active confirmed Plan Of Treatment No Information Insurance Providers Payer Name Payer Address Payer Phone Subscriber Number Group Number Insured Name Patient Relationship to Insured Coverage Start Date Coverage End Date A[employer] MEDICARE COMPLETE [facility] [address] [address] [place], [place] [id number] Lizy Patton Self - patient is the insured 9 [phone] Medical (General) History Medical History History ICD Code Chronic kidney disease, stage IV (severe ) N18.4 Osteoporosis, unspecified os teoporosis type, unspecified pathological fracture presence M81.0 Hyperparathyroidism E21.3 Balance disorder R26.89 Gastro-esophageal reflux disease without esophagitis K21.9 Apnea, not elsewhere classified R06.81 H/O renal cell cancer Z85.528 Obesity without serious aissatou rbidity, unspecified classification, unspecified obesity type E66.9 Surgical History Surgery Date(Month/Year) Right hip replacement 03/2013 lap band 01/2009 left hip replacement 03/2008 left nephrectomy 08/1999 cholcystectomy 07/1999 arm fracture 03/1999 Hospitalization History Reason Date(Month/Year) hip replacement 03/2013 lap band 01/2009 hip replacement 03/2008 nephrectomy 08/1999 cholycystectomy 07/1999 arm fracture 03/1999
--- OUTSIDE RECORDS SUMMARY | 2024-08-16 07:56 | XMS_ITS | Encounter Summary ---
Author Organization [facility] [facility] Address [address] [place] [address] Care Team Providers Care Face Burler Name Role Phone Nidia Kim DO Primary Care Provider [phone] Reason for Visit * Reason Comments Med Refill Encounter Details Date Type Department Care Team (Late st Contact Info) Description 07/25/[address] [facility] Primary Care [facility] [address] [place] [address] Nidia Kim DO [address] [place] [address] Benign hypertension with CKD (chronic kidney disease) stage III (CMS/HCC) Social History Tobacco Use Types Packs/Day Years Used Date Smoking Tobacco: Former Cigarettes 2 20 0 02/24/1965 - 1985 Smokeless Tobacco: Never Alcohol Use Standard Drinks/Week Comments Yes 2 (1 standard drink = 0.6 oz pur e alcohol) 2 per month AUDIT-C Answer Date Recorded Q1: How often [...] have Coronavirus / COVID-19? No / Unsure 07/28/2020 9:57 AM MDT documented as of this encounter Miscellaneous Notes * Telephone Encounter - Adan Biswas MA - 07/25/2020 2:01 PM MDT Patient last seen: 03/03/2020 Next follow up appt: none Last medication refill: medication was discontinued 02/07/2020 Last labs: 01/01/2020 Please review pended rx documented in this encounter Plan of Treatment Upcoming Encounters Date Type Department Care Team (Late st Contact Info) Description 09/24/2024 12:45 PM MDT Office Visit [place] [facility] [address] [facility] [address] [place] [phone] Jos Gagnon MD [facility] [facility] [address] [place] [address] 09/27/2024 2:00 PM MDT Office Visit [facility] Primary Care [facility] [address] [place] [phone] Nidia Kim DO [address] [place] [address] 10/12/2024 3:00 PM MDT Office Visit [facility] [place] [address] [place] [phone] Rosaline Whalen, OSCAR [address] [facility] [address] [place] [address] 04/08/2025 9:00 AM [facility] Appointment [facility] Vascular Cath Neuro Center [address] [facility] [place] [address] Rosaline Whalen NP [address] [facility] [address] [place] [address] 04/14/2025 11:00 AM [facility] Office Visit [facility] [place] [address] [facility] [address] [place] [address] Rosaline Whalen NP [address] [facility] [address] [place] [address] 04/13/2026 9:30 AM [facility] Education [facility] [place] [address] [facility] [address] [place] [address] documented as of this encounter Visit Diagnoses Diagnosis Benign hypertension with CKD (chronic kidney disease) stage III ([facility]) Benign hypertensive kidney disease with chronic kidney disease stage I through stage IV, or unspecified documented in this encounter Care Teams Face Burler Relationship Specialty Start Date End Date Nidia Kim DO [address] [place] [address] PCP - General Sports Medicine 09/21/23 documented as of this encounter
--- OUTSIDE RECORDS SUMMARY | 2024-08-16 07:56 | XMS_ITS | Encounter Summary ---
Author Organization [facility] Address [address] [place] [address] Care Team Providers Care Lath Hand Name Role Phone Nidia Kim Primary Care Provider [phone] Encounter Details Date Type Department Care Team (Latest Contact Info) Description 08/06/2024 Travel Social History Tobacco Use Types Packs/Day [...] Description 09/24/2024 12:45 PM MDT Office Visit [place] [facility] [place] [facility] [address] [place] [address] Jos Gagnon MD [address] [place] [address] 09/27/2024 2:00 PM MDT [facility] [address] [place] [phone] Nidia Kim DO [address] [place] [address] 10/12/2024 3:00 PM MDT [facility] [place] [address] [facility] [address] [place] [address] Rosaline Whalen NP [address] [facility] [address] [place] [address] 04/08/2025 9:00 AM [facility] Appointment [facility] Vascular Cath Neuro Center [address] [place], [place] [address] Rosaline Whalen NP [address] [facility] [address] [place] [address] 04/14/2025 11:00 AM [facility] Office Visit [facility] [place] [address] [facility] [address] [place] [address] Rosaline Whalen NP [address] [facility] [address] [place] [address] 04/13/2026 9:30 AM [facility] Education [facility] [place] [address] [facility] [address] [place] [address] documented as of this encounter Visit Diagnoses Not on filedocumented in this encounter Care Teams Lath Hand Relationship Specialty Start Date End Date Nidia Kim DO [address] [place] [address] PCP - General Sports Medicine 09/21/23 documented as of this encounter
--- OUTSIDE RECORDS SUMMARY | 2024-08-16 07:56 | XMS_ITS | Referral Summary ---
Author Organization Pending sale to [facility] Address [address] [place] [address] Care Team Providers Care Surg Tech Name Role Phone Nidia Kim DO Primary Care Provider [phone] Encounters Date Type Department Care Team Description 08/11/2024 Telephone [facility] [place] [address] [place] [phone] Nidia Kim DO Care Management (CPAP) 08/06/2024 Travel 08/06/2024 11:30 AM MDT [facility] [address] [place] [address] Gale Gar, PT Bilateral leg weakness (Primary Dx); Decreased activity tolerance; Bilateral hip pain; Gait disturbance; Balance disorder 08/03/2024 11:30 AM MDT [facility] [address] [place] [address] Gale Gar, PT Gait disturbance (Primary Dx); Bilateral leg weakness; Decreased activity tolerance; Bilateral hip pain; Balance disorder 08/02/2024 Travel 07/30/2024 Orders Only [facility] [address] [place] [phone] Tanja Renteria MA MINNA (obstructive sleep apnea) 07/30/2024 11:30 AM MDT [facility] [address] [place] [address] Gale Gar, PT Gait disturbance (Primary Dx); Bilateral leg weakness; Decreased activity tolerance; Bilateral hip pain; Balance disorder 07/29/2024 Telephone [facility] [place] [address] [place] [address] Tanja Renteria MA Med Refill 07/27/2024 Travel 07/27/2024 11:30 AM MDT Treatment [facility] [place] [address] Gale Gar, PT Gait disturbance (Primary Dx); Bilateral leg weakness; Decreased activity tolerance; Bilateral hip pain 07/26/2024 Travel 07/23/2024 10:00 AM MDT Treatment [facility] [place] [address] Gale Gar, PT Bilateral leg weakness (Primary Dx); Decreased activity tolerance 07/22/2024 Travel 07/20/2024 Travel 07/20/2024 10:00 AM MDT [facility] [place] [address] Gale Gar, PT Balance disorder (Primary Dx); Gait disturbance; Bilateral leg weakness; Decreased activity tolerance 07/16/2024 11:30 AM MDT [facility] [place] [address] Gale Gar, PT Balance disorder (Primary Dx); Gait disturbance; Bilateral leg weakness; Decreased activity tolerance 07/13/2024 Telephone [facility] [place] [address] Gale Gar, PT 07/12/2024 Travel 07/07/2024 Telephone [facility] [address] [place] [address] Nidia Kim DO Prior Authorization (MOUNJARO) 07/06/2024 Travel 07/06/2024 4:00 PM MDT Treatment [facility] [address] [place] [address] Zoya Mckinnon, PT Balance disorder (Primary Dx); Gait disturbance; Bilateral leg weakness; Decreased activity tolerance 07/05/2024 Telephone [place] [address] [place] [address] Nidia Kim DO Prior Authorization (MOUNJARO) 07/02/2024 Travel 07/01/2024 Telephone [place] [address] [place] [address] Nidia Kim DO Prior Authorization (MOUNJARO) 07/01/2024 Telephone [place] [address] [place] [address] Nidia Kim DO Care Management ([facility]) 06/30/2024 Telephone [place] [address] [place] [address] Nidia Kim DO Clinical Concern 06/24/2024 Travel 06/24/2024 1:00 PM MDT Evaluation [facility] [address] [place] [address] Nidia Kim DO Bailey, Christine A, PT Gait disturbance (Primary Dx); Balance disorder; Bilateral leg weakness; Decreased activity tolerance 06/23/2024 Telephone [place] [address] [place] [address] Nidia Kim DO Prior Authorization (MOUNJARO) 06/23/2024 Travel 06/23/2024 9:40 AM MDT Office Visit [place] [address] [place] [address] Nidia Kim DO MINNA (obstructive sleep apnea) (Primary Dx) 06/16/2024 7:24 PM MDT - 06/16/2024 11:59 PM MDT Hospital Encounter [facility] [address] [place] [address] Nidia Kim DO Discharge Disposition: *Home or Self Care 06/15/2024 Travel 06/09/2024 Travel 06/09/2024 12:40 PM MDT Office Visit [place] [address] [place] [address] Nidia Kim DO SALAZAR (dyspnea on exertion) (Primary Dx); MINNA (obstructive sleep apnea); Balance disorder; CKD (chronic kidney disease) stage 4, GFR 15-29 ml/min ([facility]) 06/08/2024 Orders Only [place] [address] [place] [address] ProviderArturo MD 06/08/2024 Travel 05/28/2024 Travel 05/28/2024 10:49 AM MDT Anesthesia Event [facility] [address] [place] [facility] [address] Guido Campbell MD 05/28/2024 9:50 AM MDT - 05/28/2024 12:30 PM MDT Hospital Encounter [facility] [address] [place] [facility] [address] Rosaline Whalen, Sailnas Garrison MD Presence of Watchman left atrial appendage closure device Discharge Disposition: *Home or Self Care 05/25/2024 Travel 05/25/2024 1:30 PM MDT Office Visit [facility] [place] [address] [facility] [address] [place] [address] Rosaline Whalen NP Presence of Watchman left atrial appendage closure device (Primary Dx) 05/24/2024 Prep for Case [facility] [place] [address] [place] [address] Rosaline Whalen NP Paroxysmal atrial fibrillation (CMS/HCC) (Primary Dx) 05/21/2024 Travel from Last 3 Months Allergies Active Allergy Reactions Criticality Noted Date [...] TWICE A MONTH 03/07/19 24 Active vitamins O1-S6-G2-B12-p rotease 2.5 mg-2.5 mg- 5 mg-100 mcg [...] clinically significant bleeding risk, medication non compliance). [id number] = 7 (HTN, Age x2, Pre-DM, Prior [...] patients with non-valvular atrial fibrillation. Per the Hardin Fx trial patients who undergo Watchman implantation [...] lifelong. Assessment & Plan (04/22/2024 2:18 PM [facility]): Patient seen today in follow [...] care. 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 I would recommend a klnc-mxf-irmupml topical Salonpas. She has had stomach upset [...] future. She will follow-up with me at [facility]. Chronic anticoagulation 10/10/2019 Overview (09/24/2023): Patient referred by Dr Gagnon for LAAO consideration due to desire to stop eliquis for paroxysmal Atrial fibrillation (not previously treated with DCCV and ablation) because of fall risk, increased thromboembolic stroke risk, clinically significant bleeding risk, medication non compliance). 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 Reviewed GONZALO closure procedure in detail. GONZALO closure/device implantation is utilized to decrease risk of CVA due to atrial fibrillation. It appears to be as efficacious as Coumadin for CVA prevention in patients with non-valvular atrial fibrillation. Per the Hardin Fx trial patients who undergo Watchman implantation [...] She is to touch base with her assistant distribution manager to ensure that they are okay with [...] risk. Assessment & Plan (01/17/2021 9:20 AM [facility]): Most recent Hgb 12.9 Following [...] risk. Assessment & Plan (01/17/2021 9:21 AM MST): No residual deficit. Continue eliquis and okay to stop as needed for surgery Assessment & Plan (03/03/2020 11:41 AM MST): MRI brain shows chronic ischemic changes in left occipital lobe, now also with new ischemic area in parietal lobe. Discussed secondary stroke prevention Start baby aspirin Increase lipitor dose to 20mg daily. Has long standing history of being intolerant to statins in the past so hesitant to increase dose. Has appropriate neurology follow up in 1.5 weeks Assessment & Plan (01/12/2020 7:28 PM MST): Recurrent. Now with peripheral vision loss. Check [...] fibrillation. Assessment & Plan (04/29/2019 8:05 AM MST): Patient with 1 kidney due to renal cell carcinoma hx Will allow for permissive hypertension in the setting of probable TIA Monitor blood pressure Monitor kidney function, BMP in the a.m. Cr improved Assessment & Plan (03/18/2019 6:56 AM MST): Some elevated blood pressure readings but averaging [...] refill Assessment & Plan (03/18/2019 6:55 AM [facility]): Lumbar spine is doing somewhat better recently. Has seen Dr. Burger in the past and there was some consideration of having a lumbar fusion. Kidney stone 02/03/2019 Overview (02/03/2019): [id number] Chronic pain of both feet 11/27/2018 Assessment & Plan (09/24/2023 2:44 PM MDT): Increases fall risk Assessment & Plan (12/17/2019 3:40 PM MDT): Follows with Dr Alanis Assessment & Plan (03/18/2019 6:53 AM [facility]): Patient currently seeing Dr. Mayito Alanis. 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 She recently had a right ankle injection [...] blood work in June 2021 with her assistant distribution manager shows a slight increase in her PTH but her calcium has been normal. She does have a history of hyperparathyroidism. Endocrinology referral placed today. Follow-up with me as needed. Assessment & Plan (05/01/2018 7:18 AM MST): Patient seen in endocrinology in [place]. Left parathyroid nodule causing hyperparathyroidism has been [...] parathyroid surgery. This will be done in [place]. Patient also had questions about her immunizations. [...] visit. Balance disorder 06/04/2017 Overview (06/04/2017): PT [id number] approx Assessment & Plan (06/14/2024 6:07 AM [...] balance. Assessment & Plan (02/07/2018 1:58 PM MST): Previous PT for balance and strengthening. Stable Plan: back surgery in near future. Possible Parathyroid abn. Workup in process. Assessment & Plan (06/04/2017 10:07 AM MDT): May need more PT for balance and leg strengthening. Having issues getting around confidently. History of laparoscopic adjustable gastric abdon ng 06/04/2017 Overview (03/18/2019): Gastric band-2008 Assessment & Plan (06/04/2017 10:08 AM MDT): Band procedure. 2008. Pt concerned about possible complications. Osteoarthritis of both hips 01/30/2017 Overview (02/07/2018): Bilateral hip replacement Assessment & Plan (02/07/2018 1:54 PM MST): Bilateral hip replacement. Stable Plan: cont wt loss and exercise. Ex-smoker 01/30/2017 Overview (01/30/2017): Quit over 39 yrs Dyslipidemia 07/13/2016 Overview (08/04/2018): BV-omdxnl-HHG-64 Assessment & Plan (04/27/2019 6:25 PM [facility]): Will obtain lipid panel Will likely need statin Assessment & Plan (02/03/2019 11:01 AM [facility]): FH-noted. IR- 39-48-91-64-76. HDL-ideal #, large HDL-5.2-4.7, average HDL-9.0-8.8. UKO-7354-5813, size-20.9-20.9, small LDL-633-628. Stable overall. in end stage Lung disease. Probable secondary hyperparathyroid now??? Had parathyroid removed recently. VQZ-04-13-25-25-29. Rest of labs normal. Refilled meds (or [...] IR- 46-64. HDL-ideal #. 9.3-5.2, 9.7-9.0 size. XXH-9259-9212, size-21.5-20.9, small LDL-560-633. GFR 28-02-05-29-25. Elevated calcium with hyperparathyroidism. Known elevated PTH. [...] visit. Assessment & Plan (02/07/2018 1:56 PM [facility]): Stable lipids . Plan: aggressive lipid management Assessment & Plan (01/23/2018 6:58 AM [facility]): FH-noted. IR- 44-46. HDL-ideal #. Huge size. UVZ-429-7096, size-21.8-21.5, small LDL-165-560. TG 169-111. GFR 37-24-30-29. [...] IR- 67-62-44. HDL-ideal #. Now ideal size. YZP-5162-597, size-21.0-21.8, small LDL-492-165. Near ideal test XRH-74-01-30. Rest of labs normal. Refilled meds (or [...] exercise. Assessment & Plan (02/18/2017 12:04 PM MST): FH-clean. IR- 67-62. HDL-Shafer # and big size. 9.1 size. LDL- 7899-5688, 21.2- 21.0 size, 525-492 small LDL. Renal-37-24. Rest of labs done. Has only kidney. Statin-muscle pain. Metformin-diarrhea. Will add Actos 30mg. Spent 25 min, over 50% counseling Assessment & Plan (01/30/2017 10:13 AM MST): Been trying Metformin 500mg ---always gets diarrhea. Maybe add Actos when back in for labs. One kidney-watch GFR closely. Will be back soon to go over labs Assessment & Plan (07/13/2016 4:18 PM MDT): AX-Eovddb-ANC-60's. E-4. IR-71. XXX-iowut-vs sizes. LDL 9672-3147, 21.2-21.2, 314-525 small LDL. GFR-37-39. Need to [...] Visual aura only, no headache. Stable Plan: WF-vhrokohb-nppiux-brother. Assessment & Plan (01/30/2017 10:10 AM MST): ZS-wakbyjqr-srqpmf, brother Allergic rhinitis 07/13/2016 Overview (02/03/2018): Mild [...] GFR 15-29 ml/min 07/13/2016 Overview (03/18/2019): GFR 26-67-77-29-25-25. History of left nephrectomy-renal cancer Assessment & [...] (06/23/2019 10:25 AM MDT): Last Cr at [facility] 2.0, Check labs in 2 weeks Assessment [...] Dysphasia 05/02/2019 06/23/2019 FHx: heart failure 08/04/2018 5 Overview (08/04/2018): WP-famvgo-YIV-64 History of sleep apnea 08/21/201706/09 Assessment & [...] counseling. Preventative health care 01/30/2017 Overview (08/05/2018): -15-18 Assessment & Plan (06/25/2023 3:21 PM MDT): Medicare wellness visit completed today. Advanced care planning in place Cognitive screen negative See other plan Assessment & Plan (05/31/2022 12:45 PM MDT): Medicare wellness visit completed today Cognitive screen negative Advance care planning discussed and in place Will be getting labs in near future. Start PT for gait stability. Assessment & Plan (03/21/2021 5:37 PM [facility]): 76-year-old female seen today for [...] 2015 Assessment & Plan (02/07/2018 1:49 PM MST): Shots all up to date. Colon 1 [...] Actos? Assessment & Plan (01/30/2017 10:21 AM MST): Flu shot done. Has all other shots. Colon exam 1 or 2 in past. Can set up when ready. DY-kgkinp-LH cancer of some type-jejunum area-type? FH-neg for [...] today. Assessment & Plan (02/07/2018 1:57 PM [facility]): On HRT. Asymptomatic Plan: cont on HRT [...] time. Assessment & Plan (03/18/2019 6:54 AM [facility]): Patient with history of gastric band procedure. Having much more reflux symptoms. She is taking Prilosec cautiously due to her CKD. Her understanding is sometime the LAP-BAND have to be removed. She will be referred to Dr. Gay-gastric bypass surgeon. Assessment & Plan (02/07/2018 1:51 PM [facility]): Hx of Gastric band. Much GERD. Stable [...] counseling. Assessment & Plan (01/30/2017 10:08 AM [facility]): Prilosec 1 or 2 per day Immunizations Name Administration Dates Next Due Covid-19 (Moderna) 04/29/2020,04/06/2020 Covid-19 (PFIZER) bivalent ( ages 6mos-4yrs) 04/29/2020,04/06/2020 Covid-19 (Pfizer) (purple cap) 12/11/2020 DTaP 02/03/2020 Influenza (IM) 11/07/2015, 5,09/24/2013,12/30 Influenza (IM) Quadrivalent 11/24/2020 Influenza (IM) Trivalent 11/24/2020 Influenza (IM), Trivalent, P F Syringe/SDV 11/23/2008,01/11/2008 Influenza Quadrivalent, Adju vanted 65+ (FLUAD) 11/24/2020 Influenza Trivalent, Adjuvan russel 65+ (FLUAD) 11/27/2023 Influenza, High Dose 11/13/2022,12/25/19 22,11/24/2020,12/16,12/17/2019,11/26/2018,11/26/2018 ,11/17/2017,10/10/2016,10/10/2016,0803/2016,11/11/2014,11/11/2014 Influenza, Unspecified 11/24/2020,11/12/2017 PPD Test 02/25/2021,02/25/2021 Pneumococcal Conjugate 13-Valent 11/11/2014,09/0 02/2014 Pneumococcal Polysaccharide 23-Valent 04/09/2005 RSV vaccine, recombinant (AREXVY) 11/13/2022 Td 04/08/2008 Tdap 02/03/2020 Zoster (ZOSTAVAX) 11/24/2020 Zoster recombinant (SHINGRIX) 05/05/2021, 021 Social History Tobacco Use Types Packs/Day Years [...] Description 09/24/2024 12:45 PM MDT Office Visit [place] [facility] [address] [place] [address] Jos Gagnon MD [address] [facility] [address] [place] [address] 09/27/2024 2:00 PM MDT Office Visit [facility] [address] [place] [address] Nidia Kim DO [address] [place] [address] 10/12/2024 3:00 PM MDT Office Visit [facility] [place] [address] [facility] [address] [place] [address] Rosaline Whalen NP [address] [facility] [address] [place] [address] 04/08/2025 9:00 AM [facility] Appointment [facility] [address] [place] [address] Rosaline Whalen NP [address] [facility] [address] [place] [address] 04/14/2025 11:00 AM MST Office Visit [facility] [place] [address] [facility] [address] [place] [address] Rosaline Whalen Ivania, BRUSHER WARP [address] [place] [address] 04/13/2026 9:30 AM [facility] Education [facility] [place] [address] [place] [address] Medical Devices Implanted Type Area Geodetic Survey Director Device Identifier Shelf Expiration Date Model / Serial / Lot Implant Implant Bilateral: Hip Description:lens implants bi lateral, jerry from a nephrectomy, lap band Implant Implant Bilateral: Hip Implant Implant Right: Dental Surgicel Flexible Sheer Weave 8x4in Hemostat Absorbable Sterile Disposable - [id number] Implanted:Qty: 1 on 10/19/2018 by Ildefonso Staley III, MD at [facility] Implant N/A: Neck J & J:ETH[employer] INC:WOUND MGMT 02/23/20231951 / / [id number] Dome Talar Inbone 2 Ankle Sulcus - [id number] Implanted:Qty: 1 on 02/08/2021 by Adolfo Alanis DO at [facility] Implant Right: Ankle [place] [employer]:GeoVax TECH 03/13/2028 [id number] / / [id number] Tibial Insert Ankle 2+ 8mm Poly Infinity - [id number] Implanted:Qty: 1 on 02/08/2021 by Adolfo Alanis DO at [facility] Implant Right: Ankle [employer]:GeoVax TECH 09/03/2026 [id number] / / [id number] Suture Clayhole Iconix Force Fiber 2 Needle Intellibraid Technology 1.4mm Sterile Latex-Free - [id number] Implanted:Qty: 2 on 02/08/2021 by Adolfo Alanis DO at [facility] Implant Right: Ankle ALLY:STRYKE R ENDOSCOPY 10/12/2022 [id number] / / [id number] Dome Talar Inbone 2 Ankle Sulcus - [id number] Implanted:Qty: 1 on 02/08/2021 by Adolfo Alanis DO at [facility] Implant [place] [employer] MED TECH [id number] / / Tibial Tray Adaptis 3 Infinity Knee - [id number] Implanted:Qty: 1 on 02/08/2021 by Adolfo Alanis DO at [facility] Implant [facility]:[place] [employer]. [facility] [id number] / / [id number] Bone Screw 2.7mm 2.1mm 10mm Self Tap Lock Stardrive Thread Head Stainless Steel T8 Ns - [id number] Implanted:Qty: 4 on 02/14/2021 by Adolfo Alanis DO at [facility] Implant Right: Ankle J & J:DEPUY SYNTHES 202.210 / / Bone Screw 2.7mm 2.1mm 24mm Self Tap Lock Stardrive Thread Head Stainless Steel T8 Ns - [id number] Implanted:Qty: 2 on 02/14/2021 by Adolfo Alanis DO at [facility] Implant Right: Ankle J & J:DEPUY SYNTHES 202.224 / / Bone Screw 2.7mm 2.1mm 26mm Self Tap Lock Stardrive Thread Head Stainless Steel T8 Ns - [id number] Implanted:Qty: 1 on 02/14/2021 by Adolfo Alanis DO at [facility] Implant Right: Ankle J & J:DEPUY SYNTHES 202.226 / / Bone Screw 2.7mm 2.1mm 30mm Self Tap Lock Stardrive Thread Head Stainless Steel T8 Ns - [id number] Implanted:Qty: 1 on 02/14/2021 by Adolfo Alanis DO at [facility] Implant Right: Ankle J & J:DEPUY SYNTHES 202.230 / / Bone Screw 2.7mm 5mm 38mm Cortex Self Tap Stardrive Stainless Steel T8 Ns Pediatric - [id number] Implanted:Qty: 1 on 02/14/2021 by Adolfo Alanis DO at [facility] Implant Right: Ankle J & J:DEPUY SYNTHES 202.898 / / Bone Plate 66mm 7 Hole Shaft Low Profile Cut To Length Condylar Stainless Steel Lcp Ns 2.7 - [id number] Implanted:Qty: 1 on 02/14/2021 by Adolfo Alanis DO at [facility] Implant Right: Ankle J & J:DEPUY SYNTHES 249.684 / / Glenoid Baseplate 25mm Tornier Aequalis Perform +3mm Shoulder Lateralize Augment Reverse - [id number] - [id number] Implanted:Qty: 1 on 03/27/2022 at [facility] Implant [place] [employer]:Geo[employer]ax TECH [id number] 01/25/2027 [id number] / [id number] / Bone Screw 7mm Reverse Aequalis Perform Sterile Latex-Free - [id number] - [id number] Implanted:Qty: 1 on 03/27/2022 at [facility] Implant TORNIER SA:TORNIER INC [id number] 09/12/2026 [id number] / [id number] / Sphere Glenoid 36mm Aequalis Perform Tornier Standard Shoulder Reverse - [id number] - [id number] Implanted:Qty: 1 on 03/27/2022 at [facility] Implant [place] [employer]. [id number] 02/07/2027 [id number] / [id number] / Screw Baseplate 14mm 5mm Aequalis Perform Reversed Glenoid Peripheral Ns - [id number] Implanted:Qty: 2 on 03/27/2022 at [facility] Implant [place] [employer] Inc. [id number] / / Screw Baseplate 38mm 5mm Aequalis Perform Glenoid Reverse Peripheral Ns - [id number] Implanted:Qty: 1 on 03/27/2022 at [facility] Implant [facility]:RecCheck, Inc. [id number] / / Humeral Stem Perform 2+ Long Shoulder Sterile Latex-Free - [id number] - [id number] Implanted:Qty: 1 on 03/27/2022 at [facility] Implant TORNIER SA:PogoplugNIER INC [id number] 01/16/2027 [id number] / [id number] / Bone Cement Palacos R 40gm High Viscosity Green - [id number] Implanted:Qty: 2 on 03/27/2022 by Rigoberto Thorne MD at [facility] Implant Right: Shoulder [facility] MEDICAL [id number] 09/23/2026 [id number] / / [id number] Insert Humeral 36mm Perform Thk+0mm .5 Shoulder Sterile Latex-Free - [id number] - [id number] Implanted:Qty: 1 on 03/27/2022 by Rigoberto Thorne MD at [facility] Implant TORNIER SA:TORNIER INC 09/06/2024 [id number] / [id number] / Watchman Flx 20mm Cardiovascular Occluder Delivery System Sterile Latex-Free Left Atrial - [id number] Implanted:Qty: 1 on 04/13/2024 by Meli Cole MD at [facility] Implant Inhibitex 11/16/2026 [id number] / / [id number] Lens Lens Bilateral: Eye Staple Staple Left: Abdomen Description:jerry from lef t kidney removal Explanted Type Area Geodetic Survey Director Device Identifier Shelf Expiration Date Model / Serial / Lot Bone Screw 2.7mm 36mm Cortex Self Tap Stardrive Stainless Steel T8 Ns Pediatric Modular - [id number] Explanted:Qty: 1 on 02/14/2021 by Adolfo Alanis DO at [facility] Implant Right: Ankle J & J:DEPUY SYNTHES 202.896 / / Alignment Pin 200mm 2.5mm Aequalis Shoulder Glenoid Sterile Disposable - [id number] - [id number] Explanted:Qty: 1 on 03/27/2022 at [facility] Implant TORNIER SA:TORNIER INC [id number] 06/05/2026 [id number] / [id number] / Procedures Procedure Name Priority Date/Time Associated [...] * Sleep Study Adult: (06/16/2024) 06/16/2024 [facility] ORDERABLES Fin al Result SANTIAGO [...] patient's YOLANDA procedure was performed in the C under deep conscious sedation utilizing Propofol with [...] device. 6. Small iatrogenic ASD with primarily kenw-bj-nytiz shunting noted on color-flow Doppler however there was a small amount of right to left shunting also seen. 7. Study recorded in a NSR. 8. No complications from the procedure. us Rosaline Whalen NP CV ECHO ORDERABLES Final Re sult * COLONOSCOPY (09/30/2019 3:12 PM MDT) 09/30/2019 3:12 PM MDT Narrative Transcriptions Linda Lawler, - 09/30/2019 3:12 PM MDT [facility] Special Procedures - [facility] Patient Name: Lizy Patricia Procedure Date: 09/30/2019 3:12 PM Date of : 1945 Admit Type: Outpatient Age: 74 Room: [place] [address] Gender: Female Attending MD: Linda Lawler, Procedure: Colonoscopy Indications: Screening for colorectal malignant neoplasm - previous history of colostomy Providers: Linda Lawler (Doctor) , NONE NONE, MD (Assisting Doctor) Referring MD: Adolfo Goins (Referring [...] the bowel preparation was poor. Erasmo Lawler, Saúl.O. Linda Lawler, 09/30/2019 3:53:47 PM This report has been signed electronically.Linda Lawler Number of Addenda: 0 Note Initiated On: 09/30/2019 3:12 PM Procedure Code(s): --- Professional --- 84857, Colonoscopy through stoma; diagnostic, including collection of specimen(s) by brushing or washing, when performed (separate procedure) Diagnosis Code(s): --- Professional --- Z12.11, Encounter for screening for malignant neoplasm of colon K64.0, First degree hemorrhoids T18.5XXA, Foreign body in anus and rectum, initial encounter CPT copyright 2019 [employer]. All rights reserved. The codes documented in this report are preliminary and upon icd 9 coder review may be revised to meet current compliance requirements. 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
--- OUTSIDE RECORDS SUMMARY | 2024-08-16 07:56 | XMS_ITS | Clinical Summary ---
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
--- NOTE | 2024-08-16 10:41 | ED_ITS ---
HPI HPI - General Adult General Chief complaint: Abdominal Pain Stated complaint: CONSTIPATION Time Seen by Provider: 08/16/24 09:03 Source: patient and family Mode of arrival: walk-in Limitations: no limitations History of Present Illness HPI narrative: Patient is a 79-year-old female who is presenting to the ER today with chief complaint of constipation for the past 7 days. Patient 79-year-old female who is presenting to the ER today with chief complaint of no bowel movement for 7 days. She has no significant rectal pain, abdominal pain. No fever. No chest pain or shortness of breath. Patient does have a history approximately 4 years ago of a bowel perforation. Patient has no urinary frequency urgency burning. Patient looks very comfortable. Patient says that she has been using his cxsj-wom-cpvpqoc stool softeners every other day. Patient was very comfortable. Patient's cousin is at bedside. Patient's cousin was very worried about her because of a bowel perforation that occurred 4 years ago. Patient is asymptomatic at this time. No flank pain, back pain, no other acute complaints. All systems are negative except as noted/marked. All systems reviewed and ot herwise negative. Nurses note and vital signs reviewed and patient is not hypoxic. General: The patient appears well and in no apparent distress. Patient is resting comfortably on cart. Patient is not toxic, lethargic, or listless Skin: Warm, dry, no pallor noted. There is no rash noted. No petechiae, purpura. Head: Normocephalic, atraumatic Eye: Normal conjunctiva, no drainage, EOMI. PERRL Ears, Nose, Mouth, and Throat: oral mucosa is moist. Nares patent. Mouth without vesicles. Cardiovascular: Regular Rate and Rhythm, no murmur, gallop, rub Respiratory: Patient is in no distress, no accessory muscle use, lungs are clear to auscultation, no wheezing, rales or rhonchi Back: non-tender, no CVA tenderness bilaterally to percussion. No CT LS midline pain GI: Soft, nontender, no rigidity, no peritoneal signs, no flank pain bilateral. Otherwise no tenderness to palpation, no masses appreciated. No rebound, guarding, or rigidity noted. No distention Musculoskeletal: Patient has full range of motion of all of the extremities, no motor, sensory, or focal neurological deficits Neurological: A&O x4, normal speech Psychiatric: Cooperative Related Data Previous Rx's ?Medication ?Instructions ?Recorded dicyclomine 20 mg tablet 20 mg PO TID PRN abdominal p ain #7 08/16/24 tabs ondansetron 4 mg disintegrating 4 mg PO Q4H PRN nausea and 08/16/24 tablet vomiting 3 days #6 tabs Allergies Allergy/AdvReac Type Severity Reaction Status Date / Time hydrocodone AdvReac Mild Confusion Verified 08/16/24 08:01 PFSH PFSH Social History Little interest or pleasure in doing things: not at all Feeling down, depressed, or hopeless: not at all Exam Constitutional Vital Signs, click to edit/add: Last Vital Signs Temp 97.7 F 08/16/24 07:55 Pulse 67 08/16/24 07:55 Resp 16 08/16/24 07:55 BP 136/64 08/16/24 07:55 Pulse Ox 96 08/16/24 07:55 O2 Del Method Room Air 08/16/24 07:55 Course Vital Signs Vital signs: Vital Signs Temperature 97.7 F 08/16/24 07:55 Pulse Rate 67 08/16/24 07:55 Respiratory Rate 16 08/16/24 07:55 Blood Pressure 136/64 08/16/24 07:55 Pulse Oximetry 96 08/16/24 07:55 Oxygen Delivery Method Room Air 08/16/24 07:55 Temperature 97.7 F 08/16/24 07:55 Pulse Rate 67 08/16/24 07:55 Respiratory Rate 16 08/16/24 07:55 Blood Pressure 136/64 08/16/24 07:55 Pulse Oximetry 96 08/16/24 07:55 Oxygen Delivery Method Room Air 08/16/24 07:55 Medical Decision Making [facility] Narrative Medical decision making narrative: Patient abdominal x-ray shows no acute abnormality. No air-fluid levels, no obstruction, no volvulus, no other acute findings. Patient abdomen is soft. She has no symptoms at this time. She has had no nausea or vomiting. No fever. No bowel or bladder changes besides constipation for the past 7 days. Patient feels like there is a stool in the rectal vault but she has no pain at all. Patient has tried a suppository with no relief. She has not tried any fleets enemas. Education was done at bedside and on discharge paperwork. Patient will use MiraLAX, magnesium citrate, suppositories, fleets enemas, and patient will follow-up with PCP. No questions at discharge. Discharge Plan Discharge Chief Complaint: Abdominal Pain Clinical Impression: Constipation Patient Disposition: Home, Self-Care Time of Disposition Decision: 10:39 Condition: Fair Prescriptions / Home Meds: New dicyclomine 20 mg tablet 20 mg PO TID PRN (Reason: abdominal pain) Qty: 7 0RF ondansetron 4 mg tablet,disintegrating 4 mg PO Q4H PRN (Reason: nausea and vomiting) 3 Days Qty: 6 0RF Print Language: Niuean Instructions: Constipation (ED) Additional Instructions: Use MiraLAX twice a day today, tomorrow and Friday if needed Use 1-2 bottles of magnesium citrate today and 1 bottle of magnesium citrate tomorrow if needed for polyp reduction Use suppositories as needed for constipation Most importantly use 2-3 fleets enemas today and tomorrow if needed to help with stool production Use Zofran if needed for nausea, use Bentyl if needed for abdominal cramping Referrals: Physician,Non-Staff, MD [Primary Care Provider] - 1 week
== END 2024-08-16 10:58 | disposition home or self-care (01) ==
PROVIDERS: Emergency Provider Emergency Medicine
DX: K59.00 Constipation, unspecified (principal)
CPT/HCPCS: 74022; 99283